=== PATIENT | female | born 1935 | race Caucasian/White ===

== ENCOUNTER 2017-08-11 20:03 | Emergency (ER) | payer MEDICARE, MEDICAID ==
[2017-08-11 21:01] LABS: #Eosinphils 0.2 thou/uL (0.0-0.7); Hemoglobin 12.1 g/dL (12.0-16.0); RBC Distribution Width 12.1 % (11.5-14.5); White Blood Cell (WBC) Count 6.7 thou/uL (4.8-10.8)
[2017-08-11 21:14] LABS: ALT (SGPT) 10 U/L (8-55); AST (SGOT) 17 U/L (5-34); Albumin 4.1 g/dL (3.4-4.8); Alkaline Phosphatase 109 U/L (40-150); Anion Gap 14 mmol/L (10-20); BUN (Urea Nitrogen) 11 mg/dL (9.8-20.1); Bilirubin, Total 0.5 mg/dL (0.2-1.2); Calc. Creatinine Clearance 0 mL/min (70-130); Calcium 9.3 mg/dL (7.8-10.44); Carbon Dioxide 22 mmol/L (23-31); Chloride 101 mmol/L (98-107); Estimated GFR-MDRD 89; Globulin 2.5 g/dL (2.4-3.5); Glucose 91 mg/dL (83-110); Potassium 3.6 mmol/L (3.5-5.1); Protein, Total 6.6 g/dL (6.0-8.3); Sodium 133 mmol/L (136-145)
[2017-08-11 21:16] LABS: #Basophils 0.1 thou/uL (0.0-0.2); #Lymphocytes 1.9 thou/uL (1.20-3.40); #Monocytes 0.7 thou/uL (0.11-0.59); #Neutrophils 3.8 thou/uL (1.40-6.50); %Basophils 0.9 % (0.0-1.0); %Eosinophils 3.1 % (0.0-10.0); %Monocytes 10.9 % (0.0-10.0); %Neutrophils 56.1 % (42.0-75.0); Mean Corpuscular HGB CONC 33.3 g/dL (32.0-36.0); Mean Corpuscular Volume 84.1 fl (81.0-99.0); Mean Platelet Volume 8.6 fL (7.4-10.4); Platelet Count 237 thou/uL (130-400); Red Blood Cell (RBC) Count 4.33 mill/uL (4.20-5.40)
[2017-08-11 21:19] LABS: Bilirubin Negative (Negative); Blood, Urine Negative (Negative); Clarity CLEAR (Clear); Glucose, Urine (Dipstick) Negative (Negative); Leukocyte Trace (Negative); Nitrite Negative (Negative); Protein, Urine (Dipstick) Negative (Neg-Trace); Specific Gravity, Urine 1.004 (1.002-1.036); pH, Urine 6.5 (5.0-9.0)
[2017-08-11 21:20] LABS: CKMB 2.9 ng/mL (0-6.6); Troponin I Less than 0.010 ng/mL (< 0.028)
[2017-08-11 21:22] LABS: Bacteria/HPF None Seen HPF (None Seen); Hyaline Casts/LPF 0-3 HYALINE CAST LPF (0-3 Hyaline); RBC/HPF 0-3 HPF (0-3); Squamous Epithelial None Seen HPF (0-3); WBC/HPF 0-3 HPF (0-3)
--- NOTE | 2017-08-11 21:32 | RAD ---
ONE VIEW CHEST: 08/11/17 COMPARISON: 12/02/16. HISTORY: Dizziness, generalized weakness. FINDINGS: Enlarged cardiac silhouette. Pulmonary vessels and hilum are normal. Chronic changes, without mass or consolidation. No pneumothorax or osseous abnormalities. IMPRESSION: Chronic changes. Hyperinflation. POS: [facility]
[2017-08-11] MEDS ORDERED: HYDROcodone/Acetaminophen 5/325 mg Tablet ONE (21:42)
[2017-08-11] MEDS ORDERED: Ondansetron ODT 4 MG TAB ONE (21:43)
== END 2017-08-11 22:50 | disposition home or self-care (01) ==
LOC: ERS 20:03
DX: F41.9 Anxiety disorder, unspecified (principal); R11.2 Nausea with vomiting, unspecified; E03.9 Hypothyroidism, unspecified; E78.5 Hyperlipidemia, unspecified; I25.2 Old myocardial infarction; I10 Essential (primary) hypertension; I25.10 Atherosclerotic heart disease of native coronary artery without angina pectoris; Z79.899 Other long term (current) drug therapy
CPT/HCPCS: 71045; 80053; 81003; 81015; 82553; 84484; 85025; 93005; Q0162

== ENCOUNTER 2017-10-31 14:51 | Emergency (ER) | payer MEDICARE, MEDICAID | END 2017-10-31 16:01 | disposition home or self-care (01) | LOC: SCSER 14:51 | DX: B02.9 Zoster without complications (principal); E78.5 Hyperlipidemia, unspecified; E03.9 Hypothyroidism, unspecified; I10 Essential (primary) hypertension; K21.9 Gastro-esophageal reflux disease without esophagitis; M19.90 Unspecified osteoarthritis, unspecified site; I25.10 Atherosclerotic heart disease of native coronary artery without angina pectoris; F41.9 Anxiety disorder, unspecified | CPT/HCPCS: 99282 ==

== ENCOUNTER 2017-11-18 19:48 | Emergency (ER) | payer MEDICARE, MEDICAID ==
[2017-11-18 23:57] LABS: ALT (SGPT) 9 U/L (8-55); AST (SGOT) 16 U/L (5-34); Albumin 3.6 g/dL (3.4-4.8); Alkaline Phosphatase 95 U/L (40-150); Anion Gap 11 mmol/L (10-20); BUN (Urea Nitrogen) 7 mg/dL (9.8-20.1); Bilirubin, Total 0.6 mg/dL (0.2-1.2); Calc. Creatinine Clearance 0 mL/min (70-130); Calcium 8.9 mg/dL (7.8-10.44); Carbon Dioxide 26 mmol/L (23-31); Chloride 99 mmol/L (98-107); Estimated GFR-MDRD Greater than 90; Globulin 2.1 g/dL (2.4-3.5); Glucose 96 mg/dL (83-110); Lipase 18 U/L (8-78); Potassium 3.7 mmol/L (3.5-5.1); Protein, Total 5.7 g/dL (6.0-8.3); Sodium 132 mmol/L (136-145)
[2017-11-19] LABS: CKMB 3.6 ng/mL (0-6.6); Troponin I Less than 0.010 ng/mL (< 0.028)
[2017-11-19 00:45] LABS: Bilirubin Negative (Negative); Blood, Urine Negative (Negative); Clarity CLEAR (Clear); Glucose, Urine (Dipstick) Negative (Negative); Leukocyte Small (Negative); Nitrite Negative (Negative); Protein, Urine (Dipstick) Negative (Neg-Trace); pH, Urine 6.5 (5.0-9.0)
[2017-11-19] MEDS ORDERED: Ondansetron HCl/PF 4 MG/2 ML Vial ONE (00:45)
[2017-11-19 00:47] LABS: Pathc Cast-AUWi Flag 0.14 (0-2.49)
[2017-11-19 01:01] LABS: Bacteria/HPF None Seen HPF (None Seen); Hyaline Casts/LPF NONE SEEN LPF (0-3 Hyaline); RBC/HPF None Seen HPF (0-3); Renal Epithelial None Seen HPF (0-3); Specific Gravity, Urine 1.004 (1.002-1.036); Squamous Epithelial 0-3 HPF (0-3); Transitional Epithelial NONE SEEN HPF (0-3)
[2017-11-19 01:42] LABS: #Eosinphils 0.1 thou/uL (0.0-0.7); #Lymphocytes 1.9 thou/uL (1.20-3.40); #Monocytes 0.7 thou/uL (0.11-0.59); #Neutrophils 3.2 thou/uL (1.40-6.50); %Basophils 0.5 % (0.0-1.0); %Eosinophils 1.8 % (0.0-10.0); %Lymphocytes 31.9 % (21.0-51.0); %Monocytes 11.5 % (0.0-10.0); %Neutrophils 54.3 % (42.0-75.0); Hemoglobin 10.6 g/dL (12.0-16.0); Mean Corpuscular HGB CONC 34.9 g/dL (32.0-36.0); Mean Corpuscular Hemoglobin 29.7 pg (27.0-31.0); Mean Platelet Volume 8.5 fL (7.4-10.4); Platelet Count 238 thou/uL (130-400); RBC Distribution Width 13.4 % (11.5-14.5); Red Blood Cell (RBC) Count 3.58 mill/uL (4.20-5.40)
--- NOTE | 2017-11-19 09:53 | CT ---
PRELIMINARY REPORT/[facility]/EMERGENTY AFTER-HOURS PROCEDURE CT Abdomen and Pelvis With Intravenous Contrast EXAM DATE/TIME: 11/19/2017 12:35 AM CLINICAL HISTORY: 82 years old, female; Pain; Abdominal pain; Localized; Right lower quadrant (rlq); Patient HX: Er19; 82f presents with rlq pain that started on thursday. Patient denies nausea and vomiting. Denies diarrhe a and constipation. Reports pain in constant TECHNIQUE: Axial computed tomography images of the abdomen and pelvis with intravenous contrast. Coronal reformatted images were created and reviewed. COMPARISON: No relevant prior studies available. FINDINGS: Lower thorax: There is minimal bibasilar atelectatic change or scarring. There is a small hiatal ayush ia. ABDOMEN: Liver: Normal. No mass. Gallbladder and bile ducts: Normal. No calcified stones. No ductal dilation. Pancreas: Normal. No ductal dilation. Spleen: Normal. No splenomegaly. Adrenals: Normal. No mass. Kidneys and ureters: Normal. No hydronephrosis. Stomach and bowel: There are duodenal diverticula. There is colonic diverticulosis without evidence f or acute diverticulitis. Appendix: The appendix is not visible, no obvious inflammatory change in the right lower quadrant. PELVIS: Bladder: Unremarkable as visualized. Reproductive: There are postoperative changes of hysterectomy. ABDOMEN and PELVIS: Intraperitoneal space: Normal. No free air. No significant fluid collection. Bones/joints: There is diffuse osteopenia and there are degenerative changes of the spine. Soft tissues: Unremarkable. Vasculature: There are calcified phleboliths in the pelvis. Lymph nodes: There are numerous subcentimeter lymph nodes at the root of the mesentery. IMPRESSION: 1. There is a small hiatal hernia. 2. There is colonic diverticulosis without evidence for acute diverticulitis. 3. The appendix is not visible, no obvious inflammatory change in the right lower quadrant. Thank you for allowing us to participate in the care of your patient. Dictated and Authenticated by: Thang Hassan MD 11/19/2017 1:18 AM Central Time ([place] & [place]) CT ABDOMEN AND PELVIS WITH IV CONTRAST: Enteric contrast not administered. FINDINGS/IMPRESSION: I agree with the preliminary interpretation by [facility]. There is incomplete assessment of the bowel without enteric contrast. No inflammatory findings to ind icate appendicitis are visualized. Retained fecal material throughout the colon with evidence of colonic diverticulosis. Nonspecific increased in number although not pathologically enlarged mesenteric lymph nodes. This can be seen in the setting of mesenteric adenitis. Recommend clinical correlation to exclude a prolific process. Moderate distention of the urinary bladder. Correlate clinically. Prominence of the vaginal soft tissues, incompletely assessed on CT imaging. Correlate with physical exam. POS: [facility]
== END 2017-11-19 02:09 | disposition home or self-care (01) ==
LOC: ERS 19:48
DX: R10.31 Right lower quadrant pain (principal); E03.9 Hypothyroidism, unspecified; E78.5 Hyperlipidemia, unspecified; I10 Essential (primary) hypertension; I25.10 Atherosclerotic heart disease of native coronary artery without angina pectoris; F41.9 Anxiety disorder, unspecified; Z79.84 Long term (current) use of oral hypoglycemic drugs
CPT/HCPCS: 36415; 74177; 80053; 81003; 81015; 82553; 83605; 83690; 84484; 85025; J2270; J2405

== ENCOUNTER 2018-05-18 19:58 | Emergency (ER) | payer MEDICARE, MEDICAID ==
[2018-05-18 21:52] LABS: #Basophils 0.1 thou/uL (0.0-0.2); #Eosinphils 0.2 thou/uL (0.0-0.7); #Lymphocytes 1.3 thou/uL (1.20-3.40); #Monocytes 0.6 thou/uL (0.11-0.59); #Neutrophils 4.5 thou/uL (1.40-6.50); %Eosinophils 2.6 % (0.0-10.0); %Lymphocytes 19.7 % (21.0-51.0); %Monocytes 9.7 % (0.0-10.0); %Neutrophils 67.1 % (42.0-75.0); Hemoglobin 10.5 g/dL (12.0-16.0); Mean Corpuscular HGB CONC 32.5 g/dL (32.0-36.0); Mean Corpuscular Hemoglobin 27.8 pg (27.0-31.0); Mean Corpuscular Volume 85.6 fL (78.0-98.0); Mean Platelet Volume 9.5 fL (7.4-10.4); Platelet Count 162 thou/uL (130-400); RBC Distribution Width 12.1 % (11.5-14.5); Red Blood Cell (RBC) Count 3.77 mill/uL (4.20-5.40); White Blood Cell (WBC) Count 6.7 thou/uL (4.8-10.8)
--- NOTE | 2018-05-18 21:57 | RAD ---
TWO VIEW CHEST: 05/18/17 INDICATION: Dizziness, weakness. FINDINGS: Lungs are hyperinflated with interstitial prominence bilaterally. The cardiomediastinal silhouette is stable. Chest otherwise similar appearing. IMPRESSION: Evidence of COPD. No lobar consolidation. POS: [facility]
[2018-05-18 22:09] LABS: ALT (SGPT) 10 U/L (8-55); AST (SGOT) 18 U/L (5-34); Albumin 3.8 g/dL (3.4-4.8); Alkaline Phosphatase 88 U/L (40-150); Anion Gap 13 mmol/L (10-20); BUN (Urea Nitrogen) 9 mg/dL (9.8-20.1); Bilirubin, Total 0.5 mg/dL (0.2-1.2); Calc. Creatinine Clearance 0 mL/min (70-130); Calcium 9.2 mg/dL (7.8-10.44); Carbon Dioxide 24 mmol/L (23-31); Chloride 99 mmol/L (98-107); Estimated GFR-MDRD 88; Glucose 99 mg/dL (83-110); Potassium 3.9 mmol/L (3.5-5.1); Protein, Total 5.8 g/dL (6.0-8.3); Sodium 132 mmol/L (136-145)
[2018-05-18] MEDS ORDERED: Meclizine HCl 25 MG TAB ONE (22:15)
== END 2018-05-18 23:17 | disposition home or self-care (01) ==
LOC: SCSER 19:58
DX: D64.9 Anemia, unspecified (principal); R42 Dizziness and giddiness; I10 Essential (primary) hypertension; E03.9 Hypothyroidism, unspecified; E78.5 Hyperlipidemia, unspecified; I25.2 Old myocardial infarction; F41.9 Anxiety disorder, unspecified; Z79.899 Other long term (current) drug therapy
CPT/HCPCS: 71046; 80053; 84443; 85025; 93005

== ENCOUNTER 2018-06-27 12:05 | Emergency (ER) | payer MEDICARE, MEDICAID ==
[2018-06-27 14:48] LABS: #Basophils 0.1 thou/uL (0.0-0.2); #Eosinphils 0.1 thou/uL (0.0-0.7); #Lymphocytes 1.6 thou/uL (1.20-3.40); #Monocytes 0.7 thou/uL (0.11-0.59); #Neutrophils 3.7 thou/uL (1.40-6.50); %Eosinophils 2.1 % (0.0-10.0); %Lymphocytes 26.2 % (21.0-51.0); %Neutrophils 59.8 % (42.0-75.0); Hemoglobin 10.5 g/dL (12.0-16.0); Mean Corpuscular HGB CONC 32.1 g/dL (32.0-36.0); Mean Corpuscular Hemoglobin 28.3 pg (27.0-31.0); Mean Corpuscular Volume 88.2 fL (78.0-98.0); Mean Platelet Volume 8.9 fL (7.4-10.4); Platelet Count 195 thou/uL (130-400); RBC Distribution Width 11.8 % (11.5-14.5); White Blood Cell (WBC) Count 6.1 thou/uL (4.8-10.8)
[2018-06-27 15:02] LABS: ALT (SGPT) 11 U/L (8-55); AST (SGOT) 15 U/L (5-34); Albumin 3.4 g/dL (3.4-4.8); Alkaline Phosphatase 75 U/L (40-150); Anion Gap 9 mmol/L (10-20); BUN (Urea Nitrogen) 10 mg/dL (9.8-20.1); Bilirubin, Total 0.6 mg/dL (0.2-1.2); Calc. Creatinine Clearance 0 mL/min (70-130); Calcium 8.8 mg/dL (7.8-10.44); Carbon Dioxide 26 mmol/L (23-31); Chloride 100 mmol/L (98-107); Estimated GFR-MDRD 87; Glucose 83 mg/dL (83-110); Lipase 10 U/L (8-78); Potassium 4.5 mmol/L (3.5-5.1); Protein, Total 5.4 g/dL (6.0-8.3); Sodium 130 mmol/L (136-145)
--- NOTE | 2018-06-27 15:14 | ULT ---
ULTRASOUND ABDOMEN LIMITED: (RIGHT UPPER QUADRANT) DATE: 06/27/2018. HISTORY: An 82-year-old female with epigastric abdominal pain. FINDINGS: Gallbladder: Partially contracted and therefore the evaluation is somewhat limited. No definite gall stones. No pericholecystic fluid. No sonographic Ledbetter's sign. Common duct: 5 mm. Liver: Normal echogenicity. Pancreas: Completely obscured by shadowing from bowel gas. Right kidney: No hydronephrosis. IMPRESSION: 1. Limited study. 2. No cholelithiasis identified. JOI Eason POS: [facility]
[2018-06-27 15:38] LABS: Bilirubin Negative (Negative); Blood, Urine Negative (Negative); Clarity CLEAR (Clear); Glucose, Urine (Dipstick) Negative (Negative); Leukocyte Negative (Negative); Nitrite Negative (Negative); Protein, Urine (Dipstick) Negative (Neg-Trace); Specific Gravity, Urine 1.005 (1.002-1.036); Urobilinogen 0.2 mg/dL (0.2-1.0); pH, Urine 7.5 (5.0-9.0)
== END 2018-06-27 15:49 | disposition home or self-care (01) ==
LOC: ERS 12:05
DX: R10.9 Unspecified abdominal pain (principal); E03.9 Hypothyroidism, unspecified; E78.5 Hyperlipidemia, unspecified; I25.2 Old myocardial infarction; I10 Essential (primary) hypertension; I25.10 Atherosclerotic heart disease of native coronary artery without angina pectoris; F41.9 Anxiety disorder, unspecified; Z79.899 Other long term (current) drug therapy
CPT/HCPCS: 36415; 76705; 80053; 81003; 83690; 85025; 93005

== ENCOUNTER 2018-09-04 09:42 | Emergency (ER) | payer MEDICARE, MEDICAID ==
[2018-09-04] MEDS ORDERED: Acetaminophen 325 MG TAB ONE (10:19)
--- NOTE | 2018-09-04 10:35 | CT ---
CT head without contrast: Multiple axial tomograms obtained through the head without IV enhancement. INDICATIONS: Fall with injury to head. COMPARISON: 05/10/2016 FINDINGS: Ventricles have normal size and position. Mild cortical atrophy again noted. Basal ganglia calcificat ions again noted. No evidence of intracranial mass, hemorrhage, edema, or infarct. Visualized sinuses and mastoids appear clear. Bony calvarium appears unremarkable. IMPRESSION: No acute finding
--- NOTE | 2018-09-04 10:42 | CT ---
CT CERVICAL SPINE NONCONTRAST: DATE: 09/04/2018 HISTORY: cervical trauma FINDINGS: There are no jumped or perched facets. There is no evidence of acute fracture. The vertebral body hei ghts are maintained. There is no prevertebral soft tissue swelling. IMPRESSION: No evidence of acute fracture or acute traumatic subluxation. ADDENDUM: Incidentally, there is a thin layer of edema in the retropharyngeal space, of uncertain etiology.
--- NOTE | 2018-09-04 10:49 | CT ---
CT facial bones: Multiple axial tones obtained through facial bones with multiplanar reconstruction. INDICATIONS: Trauma to face. Nasal bones appear intact. Orbits appear intact. Zygoma appear intact. Paranasal sinuses are well aerated. The maxilla appears intact. Mandible appears intact. Soft tissues show small hematoma lateral to the left orbit. IMPRESSION: 1. No evidence of facial bone fracture 2. Small subcutaneous hematoma lateral left orbit
== END 2018-09-04 11:30 | disposition home or self-care (01) ==
LOC: ERS 09:42
DX: S05.12XA Contusion of eyeball and orbital tissues, left eye, initial encounter (principal); M54.2 Cervicalgia; E78.5 Hyperlipidemia, unspecified; E03.9 Hypothyroidism, unspecified; I25.2 Old myocardial infarction; I10 Essential (primary) hypertension; I25.10 Atherosclerotic heart disease of native coronary artery without angina pectoris; F41.9 Anxiety disorder, unspecified; Z79.899 Other long term (current) drug therapy; W19.XXXA Unspecified fall, initial encounter
CPT/HCPCS: 70450; 70486; 72125

== ENCOUNTER 2018-10-05 08:55 | Inpatient (IN) | payer MEDICARE, MEDICAID ==
[2018-10-05 10:35] LABS: #Lymphocytes 1.1 thou/uL (1.20-3.40); #Monocytes 1.6 thou/uL (0.11-0.59); #Neutrophils 16.4 thou/uL (1.40-6.50); %Lymphocytes 5.5 % (21.0-51.0); %Monocytes 8.4 % (0.0-10.0); Hemoglobin 10.4 g/dL (12.0-16.0); Mean Corpuscular Hemoglobin 28.4 pg (27.0-31.0); Mean Corpuscular Volume 83.4 fL (78.0-98.0); Mean Platelet Volume 8.1 fL (7.4-10.4); Platelet Count 203 thou/uL (130-400); RBC Distribution Width 11.5 % (11.5-14.5); Red Blood Cell (RBC) Count 3.68 mill/uL (4.20-5.40); White Blood Cell (WBC) Count 19.1 thou/uL (4.8-10.8)
[2018-10-05 10:55] LABS: ALT (SGPT) 33 U/L (8-55); AST (SGOT) 103 U/L (5-34); Alkaline Phosphatase 73 U/L (40-150); Anion Gap 12 mmol/L (10-20); BUN (Urea Nitrogen) 11 mg/dL (9.8-20.1); Bilirubin, Total 1.9 mg/dL (0.2-1.2); Calc. Creatinine Clearance 0 mL/min (70-130); Calcium 9.3 mg/dL (7.8-10.44); Carbon Dioxide 24 mmol/L (23-31); Chloride 89 mmol/L (98-107); Estimated GFR-MDRD 82; Globulin 2.1 g/dL (2.4-3.5); Glucose 116 mg/dL (83-110); Potassium 3.2 mmol/L (3.5-5.1); Protein, Total 6.1 g/dL (6.0-8.3); Sodium 122 mmol/L (136-145)
--- NOTE | 2018-10-05 11:20 | RAD ---
Exam: Chest one view HISTORY:Diarrhea, x2-3 days. Comparison: 08/11/2017 FINDINGS: Cardiac silhouette: Normal Aorta: Atherosclerosis of the aortic knob Pulmonary vessels: Normal Costophrenic angles: Clear LUNGS: No masses or consolidation. Chronic changes in the lung bases. Pneumothorax: None Osseous abnormalities: None IMPRESSION: No acute cardiopulmonary process.
[2018-10-05] MEDS ORDERED: Potassium Chloride 20 MEQ TAB ONE (11:41)
[2018-10-05 12:45] LABS: Bilirubin Negative (Negative); Blood, Urine Moderate (Negative); Clarity CLEAR (Clear); Glucose, Urine (Dipstick) Negative (Negative); Leukocyte Negative (Negative); Nitrite Negative (Negative); Protein, Urine (Dipstick) Negative (Neg-Trace); Urobilinogen 0.2 mg/dL (0.2-1.0)
[2018-10-05 12:48] LABS: Bacteria/HPF None Seen HPF (None Seen); Hyaline Casts/LPF 4-6 HYALINE CAST LPF (0-3 Hyaline); Pathc Cast-AUWi Flag 0.27 (0-2.49); RBC/HPF 0-3 HPF (0-3); Squamous Epithelial 0-3 HPF (0-3); WBC/HPF 0-3 HPF (0-3)
[2018-10-05 12:58] LABS: Transitional Epithelial 0-3 HPF (0-3)
[2018-10-05] MEDS ORDERED: Acetaminophen 325 MG TAB PO PRN (13:46)
[2018-10-05] MEDS ORDERED: Sodium Chloride 0.9% 1,000 ML IV SCH (13:46)
[2018-10-05] MEDS ORDERED: Ondansetron ODT 4 MG TAB SL PRN (13:46)
[2018-10-05] MEDS ORDERED: Ondansetron PF 4 MG/2 ML Vial IVP PRN (13:46)
[2018-10-05] MEDS ORDERED: Ondansetron ODT 4 MG TAB PO PRN (17:50)
[2018-10-05] MEDS: Sodium Chloride 0.9% 1,000 ML IV SCH (19:56)
[2018-10-05] MEDS: Latanoprost 0.005% Ophth Soln 2.5 ml Bottle EA EYE SCH (20:48)
[2018-10-05] MEDS: cycloSPORINE 0.05% Ophthalmic Droperette EA EYE SCH (20:49)
[2018-10-05] MEDS: Mirtazapine 30 MG TAB PO SCH (20:49)
[2018-10-05] MEDS: Trospium 20 MG TAB PO SCH (20:49)
[2018-10-05] MEDS: Simvastatin 40 MG TAB PO SCH (20:49)
[2018-10-05] MEDS: ALPRAZolam 0.5 MG TAB PO SCH (20:49)
--- NOTE | 2018-10-06 00:13 | HP ---
CHIEF COMPLAINT: Generalized weakness and diarrhea. HISTORY OF PRESENT ILLNESS: Ms. Corrales is an 82-year-old female with past medical history of hypertension, hypothyroidism, anxiety, depression, has been not eating well for the last few weeks and has been losing weight steadily and in the last few days, she has taken laxatives for constipation. According to the family, she has taken more laxatives and started having diarrhea now. She had 10 loose stools and the patient is unable to get up and walk because of weakness. So, in view of the persistent diarrhea, the patient was brought to the hospital. In the ER, the patient was evaluated and found to have hyponatremia, hypokalemia, and hypovolemia. The patient received normal saline, IV bolus as well as KCl. The patient is being admitted for further evaluation and management. PAST MEDICAL HISTORY: 1. Hypertension. 2. Hyperlipidemia. 3. Hypothyroidism. 4. Anxiety disorder. 5. History of depression. 6. History of coronary artery disease. 7. History of myocardial infarction. PAST SURGICAL HISTORY: Status post hysterectomy. CURRENT MEDICATIONS: The patient is on: 1. Nexium 40 mg daily. 2. VESIcare 10 mg daily. 3. Remeron 30 mg daily. 4. Lisinopril 10 mg daily. 5. Simvastatin 40 mg daily. 6. Tramadol p.r.n. 7. Levothyroxine 25 mg mcg daily. 8. Xanax 0.5 t.i.d. 9. Lasix 20 mg daily. ALLERGIES: NKDA. FAMILY HISTORY: Nothing contributory. SOCIAL HISTORY: The patient lives with her son. No history of smoking. No history of alcohol intake. REVIEW OF SYSTEMS: CARDIOVASCULAR: No chest pain. No shortness of breath. RESPIRATORY: No fever or cough. GASTROINTESTINAL: Has diarrhea and also anorexia and weight loss. CENTRAL VENOUS SYSTEM: No headache. No dizziness. PHYSICAL EXAMINATION: GENERAL: The patient is alert, awake, not well oriented. VITAL SIGNS: Temperature 98, pulse 69, respirations 20, blood pressure 150/70. HEENT: Head is normocephalic and atraumatic. Pupils are equal and reactive. Nasopharynx is pale and dry. Hard and soft palate, no lesions. Skin turgor decreased. NECK: Supple. No JVD. LUNGS: Bilateral air entry. No rales, no rhonchi. HEART: S1 and S2, regular. ABDOMEN: Soft. No distention. No tenderness. No organomegaly. Bowel sounds present. RECTAL: Deferred. CENTRAL NERVOUS SYSTEM: The patient is alert, awake, oriented x2. Motor system, power 3 to 4/5 in all extremities. Deep tendon reflex 2+ bilaterally. Plantars downgoing. Sensory intact. LABORATORY DATA: CBC shows WBC 19, hemoglobin 10, hematocrit 30, platelets 203. Metabolic panel; sodium 122, potassium 3.8, chloride 89, CO2 24, blood urea nitrogen 11, creatinine 0.7, glucose 116, total bilirubin 1.9. AST 103. BNP was 224. Albumin 4. Urinalysis negative. Chest x-ray negative. ASSESSMENT: 1. Severe diarrhea. 2. Hyponatremia. 3. Hypokalemia. 4. Acute kidney injury. 5. Laxative abuse. 6. Anorexia and weight loss. 7. History of depression and anxiety. 8. Hypertension. 9. Hypothyroidism. 10. Leukocytosis. PLAN: 1. Vital signs q.4 hours. 2. Activities, as tolerated. 3. Allergies, NKDA. 4. IV fluids, normal saline 80 mL/h. 5. Diet, regular. 6. Continue home medications. 7. Labs in the morning. 8. GI consult. Job ID: [id number]
[2018-10-06] MEDS: Sodium Chloride 0.9% 1,000 ML IV SCH ×2 (00:35→14:14)
[2018-10-06] MEDS: Levothyroxine Sodium 25 MCG TAB PO SCH (05:23)
[2018-10-06 06:31] LABS: #Eosinphils 0.1 thou/uL (0.0-0.7); #Lymphocytes 1.5 thou/uL (1.20-3.40); #Monocytes 1.2 thou/uL (0.11-0.59); #Neutrophils 8.1 thou/uL (1.40-6.50); %Basophils 0.4 % (0.0-1.0); %Eosinophils 0.7 % (0.0-10.0); %Lymphocytes 13.6 % (21.0-51.0); %Monocytes 11.1 % (0.0-10.0); %Neutrophils 74.2 % (42.0-75.0); Hemoglobin 9.7 g/dL (12.0-16.0); Mean Corpuscular HGB CONC 33.8 g/dL (32.0-36.0); Mean Corpuscular Hemoglobin 28.6 pg (27.0-31.0); Mean Corpuscular Volume 84.5 fL (78.0-98.0); Mean Platelet Volume 8.5 fL (7.4-10.4); Platelet Count 175 thou/uL (130-400); RBC Distribution Width 11.7 % (11.5-14.5); Red Blood Cell (RBC) Count 3.39 mill/uL (4.20-5.40)
[2018-10-06 06:53] LABS: Anion Gap 9 mmol/L (10-20); BUN (Urea Nitrogen) 6 mg/dL (9.8-20.1); Calc. Creatinine Clearance 54 mL/min (70-130); Calcium 8.2 mg/dL (7.8-10.44); Carbon Dioxide 24 mmol/L (23-31); Chloride 105 mmol/L (98-107); Estimated GFR-MDRD Greater than 90; Glucose 85 mg/dL (83-110); Potassium 3.3 mmol/L (3.5-5.1); Sodium 135 mmol/L (136-145)
[2018-10-06] MEDS: cycloSPORINE 0.05% Ophthalmic Droperette EA EYE SCH (09:32)
[2018-10-06] MEDS: Trospium 20 MG TAB PO SCH (09:32)
[2018-10-06] MEDS: Aspirin Chewable 81 MG TAB PO SCH (09:33)
[2018-10-06] MEDS: Lisinopril 10 MG TAB PO SCH (09:33)
[2018-10-06] MEDS: ALPRAZolam 0.5 MG TAB PO SCH (09:33)
[2018-10-06] MEDS ORDERED: GoLYTELY 4,000 ml Bottle PO SCH (11:45)
--- NOTE | 2018-10-06 12:35 | CON ---
DATE OF CONSULTATION: 10/06/2018 REASON FOR CONSULTATION: Anorexia and weight loss. HISTORY OF PRESENT ILLNESS: Hafsa Moran is an 82-year-old woman, who has previously been seen by my GI colleague, Dr. Otoniel Granger. She had an EGD and colonoscopy back in 2012, which were essentially negative. She had a duodenal diverticulum and a single small polyp in the colon, which was ablated. She has a history of depression and anxiety as well as coronary artery disease. Over the past 6 to 12 months, the patient has unintentionally lost 30 to 40 pounds. She associates this with a decline in oral intake secondary to decrease in appetite. Most days, she is simply not hungry and will have to force herself to eat. She denies any nausea or any abdominal pain. There is no vomiting. Eating does not set off any symptoms, she simply just is not hungry. She did lose her in February of last year and a lot of the weight loss and anorexia has been increased since then. She has been tried on mirtazapine. She takes Nexium 40 mg on an as-needed basis for occasional heartburn. Over the past few weeks in addition, she was having some new issues with constipation. She took some [id number] laxatives and then had diarrhea. Along with the diarrhea, she was feeling profoundly weak and tired and was unable to get up off the couch and that is what prompted her presentation. Her laboratory workup is notable for a normocytic anemia with hemoglobin 9.7 and MCV 84.5. Fecal occult blood test was performed and is positive. She also has a slight elevation in total bilirubin to 1.9 and AST to 103 with otherwise normal LFTs. She has no prior history of liver disease. Notably, the patient had been referred back to the GI clinic several times over the past few months, but had never ended up scheduling an appointment. REVIEW OF SYSTEMS: Full review of systems including constitutional, head, eyes, ears, nose, throat, GI, , cardiovascular, respiratory, musculoskeletal, and neurologic systems are negative except as noted in the HPI. PAST MEDICAL HISTORY: Hypertension, hyperlipidemia, hypothyroidism, depression and anxiety, coronary artery disease, myocardial infarction, and hysterectomy. ALLERGIES: NO KNOWN DRUG ALLERGIES. MEDICATIONS: 1. Nexium 40 mg daily p.r.n. 2. VESIcare. 3. Remeron 30 mg daily. 4. Lisinopril 10 mg daily. 5. Simvastatin 40 mg daily. 6. Tramadol p.r.n. 7. Levothyroxine 25 mcg daily. 8. Xanax 0.5 mg t.i.d. 9. Lasix 20 mg daily. FAMILY HISTORY: Negative for GI illness or malignancy. SOCIAL HISTORY: No smoking, alcohol, or drug use. PHYSICAL EXAMINATION: VITAL SIGNS: Temperature 98.5, blood pressure 151/77, pulse 66, and 98% oxygen saturation on room air. GENERAL: Elderly 82-year-old woman, sitting up in the chair comfortably, frail, but in no acute distress. SKIN: No jaundice. No rashes were palpable. EYES: No scleral icterus. Extraocular movements intact. ENT: Mucous membranes moist. No oral lesions. LYMPH: No submandibular or supraclavicular lymphadenopathy. Thyroid nontender to palpation. HEART: Regular rate and rhythm. LUNGS: Clear to auscultation bilaterally. ABDOMEN: Nondistended. Bowel sounds present. Soft and nontender to palpation throughout. EXTREMITIES: No peripheral edema. VESSELS: Radial pulses 2+ bilaterally. NEURO: Cranial nerves 2 through 12 intact bilaterally. No focal deficits. LABORATORY STUDIES: Hemoglobin 9.7, MCV 84.5, WBC 11, and platelets 175. BUN 6, creatinine 0.56, sodium 135, potassium 3.3, total bilirubin 1.9, alkaline phosphatase 73, AST 103, ALT 33, and albumin 4.0. TSH 0.73. BNP is 224. Urinalysis negative. FOBT was positive. IMAGING STUDIES: Chest x-ray showed no acute processes. Looking back in a prior imaging studies, June 2018, abdominal ultrasound showed some stones in the gallbladder, but the exam was otherwise within normal limits with a normal common bile duct. November 2017, CT of the abdomen and pelvis demonstrated multiple mesenteric lymph nodes, but not pathologically enlarged. She has some diverticulosis, but otherwise normal bowel, otherwise normal CT exam. ASSESSMENT AND PLAN: 1. Anorexia. 2. Unintentional weight loss. 3. Normocytic anemia. I discussed with the patient that her ongoing weight loss is indeed concerning, this may simply represent a manifestation of worsened depression, particularly after the passing of her late last year. The anemia may just be a reflection of chronic disease and possibly some malnutrition with all this. However, particularly with the recent change in bowel habits, we certainly need to consider primary GI pathology. We will plan for diagnostic esophagogastroduodenoscopy and colonoscopy tomorrow. The patient desires to proceed after bowel preparation this evening. 4. Elevated LFTs. The patient has modest elevations of total bilirubin and AST with otherwise normal LFTs and no symptomatology. Recent imaging by ultrasound and CT had shown normal appearing liver. I see no evidence of cirrhosis or liver decompensation. We will order some further liver lab workup to be drawn with tomorrow morning labs including viral hepatitis serologies, autoimmune markers, and iron studies. Thank you for the consultation. Please call anytime with questions or concerns. Job ID: [id number]
[2018-10-06] MEDS ORDERED: Prevnar 13-Val Conj/PF 0.5 ML SYRINGE IM ONE (15:15)
[2018-10-06] MEDS ORDERED: Nortriptyline HCl 25 MG CAP ONE (21:17)
[2018-10-06] MEDS ORDERED: ALPRAZolam 0.5 MG TAB ONE (22:22)
[2018-10-07] MEDS ORDERED: Levothyroxine Sodium 25 MCG TAB ONE (06:04)
[2018-10-07] MEDS ORDERED: Trospium 20 MG TAB ONE (07:37)
[2018-10-07] MEDS ORDERED: ALPRAZolam 0.5 MG TAB ONE (07:38)
[2018-10-07] MEDS: Mirtazapine 30 MG TAB PO SCH ×2 (09:44→20:09)
[2018-10-07] MEDS: Latanoprost 0.005% Ophth Soln 2.5 ml Bottle EA EYE SCH ×2 (09:44→20:09)
[2018-10-07] MEDS: ALPRAZolam 0.5 MG TAB PO SCH ×3 (09:44→20:08)
[2018-10-07] MEDS: cycloSPORINE 0.05% Ophthalmic Droperette EA EYE SCH ×2 (09:45→12:13)
[2018-10-07] MEDS: Trospium 20 MG TAB PO SCH ×3 (09:45→20:09)
[2018-10-07] MEDS: Simvastatin 40 MG TAB PO SCH ×2 (09:45→20:09)
[2018-10-07] MEDS: Levothyroxine Sodium 25 MCG TAB PO SCH (09:45)
[2018-10-07 09:52] LABS: Chloride 103 mmol/L (98-107); Potassium 3.3 mmol/L (3.5-5.1); Sodium 136 mmol/L (136-145)
[2018-10-07 09:53] LABS: Calcium 8.1 mg/dL (7.8-10.44); Glucose 64 mg/dL (83-110)
[2018-10-07 09:55] LABS: Anion Gap 12 mmol/L (10-20); Carbon Dioxide 24 mmol/L (23-31)
[2018-10-07 09:57] LABS: Calc. Creatinine Clearance 63 mL/min (70-130); Estimated GFR-MDRD Greater than 90
[2018-10-07 09:58] LABS: BUN (Urea Nitrogen) 6 mg/dL (9.8-20.1)
[2018-10-07 10:12] LABS: #Eosinphils 0.1 thou/uL (0.0-0.7); #Lymphocytes 1.5 thou/uL (1.20-3.40); #Neutrophils 9.8 thou/uL (1.40-6.50); %Basophils 0.2 % (0.0-1.0); %Eosinophils 0.7 % (0.0-10.0); %Lymphocytes 12.2 % (21.0-51.0); %Monocytes 7.7 % (0.0-10.0); %Neutrophils 79.3 % (42.0-75.0); Mean Corpuscular HGB CONC 33.3 g/dL (32.0-36.0); Mean Corpuscular Hemoglobin 28.4 pg (27.0-31.0); Mean Corpuscular Volume 85.3 fL (78.0-98.0); Mean Platelet Volume 8.9 fL (7.4-10.4); Platelet Count 188 thou/uL (130-400); RBC Distribution Width 11.8 % (11.5-14.5); Red Blood Cell (RBC) Count 3.19 mill/uL (4.20-5.40); White Blood Cell (WBC) Count 12.3 thou/uL (4.8-10.8)
[2018-10-07] MEDS: Lisinopril 10 MG TAB PO SCH (10:24)
[2018-10-07] MEDS ORDERED: Metoprolol Tartrate 25 MG TAB PO SCH ×2 (10:47→11:00)
[2018-10-07] MEDS: Aspirin Chewable 81 MG TAB PO SCH (11:47)
[2018-10-07] MEDS ORDERED: Potassium Chloride 20 MEQ TAB PO SCH ×2 (12:00→13:30)
[2018-10-07 12:55] LABS: Iron 21 ug/dL (50-170); Iron Binding Capacity, Total 189 mcg/dL (265-497)
[2018-10-07] MEDS ORDERED: Sodium Chloride 0.9% 500 ML IVPB SCH (13:30)
[2018-10-07 14:23] LABS: Ferritin 239.25 ng/mL (10-291)
[2018-10-07 14:36] LABS: HBCM Index 0.05 S/CO (0-0.79); Hep A IgM AB Non-Reactive (NonReactive); Hep B Surf Ag Non-Reactive S/CO (NonReactive); Hep C IgG Ab Non-Reactive (NonReactive); Hep C Index 0.03 S/CO (0-0.79); Hepatitis B Core IgM Abs Non-Reactive (NonReactive)
[2018-10-07] MEDS ORDERED: Dronedarone HCl 400 MG TAB PO SCH (17:00)
--- NOTE | 2018-10-07 17:04 | CON ---
DATE OF CONSULTATION: 10/07/2018 PRIMARY ANIMAL TAXONOMIST: Joseline Conner MD REASON FOR CONSULTATION: Paroxysmal atrial fibrillation. HISTORY OF PRESENT ILLNESS: Ms. Moran is a very pleasant 82-year-old woman. She was admitted to the hospital yesterday with weight loss and anemia. The patient reported that she unintentionally lost 30 to 40 pounds and also had some anemia. She has increased liver function tests with AST to 103, bilirubin 1.9. Complaining of weight loss, lack of appetite, and constipation. The patient developed atrial fibrillation with a rapid ventricular response. She was transferred to telemetry this morning. She was given a dose of intravenous diltiazem and converted to sinus rhythm. PAST HISTORY: The patient was previously seen and evaluated. She was seen by Dr. Conner in November 2013 with some shortness of breath, but no chest pain. The patient had undergone cardiac catheterization in 2005. Mild coronary artery disease in 2008 and was noted to have mild bradycardia. The notes from [facility], March 2013, indicated that the previous catheterization showing only mild nonobstructive coronary artery disease on a catheterization by Dr. Wilson in 2005. The patient is feeling okay now, but complains of abdominal pain and constipation. She does not have any chest pain. She is not short of breath. MEDICATIONS AT HOME: 1. Simvastatin. 2. Alprazolam. 3. Aspirin. 4. Lisinopril. 5. Furosemide. 6. Eye drops. ALLERGIES: NONE KNOWN. SOCIAL HISTORY: No alcohol or tobacco abuse. The patient did lose her recently. REVIEW OF SYSTEMS: CONSTITUTIONAL: Positive for weakness and fatigue and weight loss. VISION: No changes. HEARING: No changes. PULMONARY: No cough or wheezing. GASTROINTESTINAL: Positive for weight loss and constipation. SKIN: No rashes. NEUROLOGIC: No unilateral weakness or numbness. PSYCHIATRIC: No unusual depression or anxiety. PHYSICAL EXAMINATION: GENERAL: This is a very pleasant thin elderly female. VITAL SIGNS: 5 feet 2 inches tall, 101 pounds. HEENT: Eyes, sclerae nonicteric. Mouth, mucous membranes moist. NECK: Supple. No lymphadenopathy. LUNGS: Clear. CARDIAC: Normal S1, normal S2. There is no murmur, rub, or gallop. ABDOMEN: Soft and nontender. EXTREMITIES: Warm and dry. No clubbing, cyanosis, or edema. PERTINENT LABORATORY DATA: The potassium is low at 3.3. She has had some diarrhea. She said it is "soupy." Hemoglobin is 9, creatinine is 0.48. BNP 224, AST 103, ALT 33, bilirubin 1.9. The patient did developed atrial fibrillation with a rapid rate earlier. There was some ST depression in V4, V5, V6, indicating she may have underlying coronary artery disease, which could be causing ischemia with tachycardia. ASSESSMENT: 1. Constipation, weight loss, and anemia, being evaluated by Gastroenterology. 2. Episode of atrial fibrillation with a rapid rate. 3. Diastolic heart failure. 4. Underlying coronary artery disease. At this point, certain medicines should likely be avoided, diltiazem, we will not start at this point, superintendent [employer] as she is already constipated. I will be reluctant to give her digoxin as she has already had lack of appetite. Multaq is problematic as well since her liver tests are abnormal. PLAN: 1. We will start low-dose beta blockers. 2. If necessary, low-dose digoxin could be added. 3. Dr. Conner will resume patient's care tomorrow. 4. Cannot anticoagulate at this point as she has anemia with progressively lower hemoglobin that is being evaluated for possible GI blood loss. 5. Dr. Conner will see tomorrow. Job ID: [id number]
--- NOTE | 2018-10-07 20:04 | PRG ---
DATE OF SERVICE: 10/07/2018 SUBJECTIVE: Ms. Moran went into atrial fibrillation early this morning and therefore, in talking with the nurses, her heart rate was 170 to 180. She was hypotensive. The decision was made to hold off on her endoscopies. She has been seen by Cardiology today and the nurses report they get her initiated on Cardizem drip. The patient's family notes that she complains of something in her belly and she feels like there is something stuck and she keeps asking for a laxative. The nurses report she has taken a full bowel prep last night and finished, but her stool still is not clear. MEDICATIONS: Medications here; 1. Xanax. 2. Aspirin. 3. Restasis. 4. Cardizem. 5. Potassium drip. 6. Synthroid. 7. Metoprolol. 8. Remeron. 9. Zofran. 10. Simvastatin. PHYSICAL EXAMINATION: VITAL SIGNS: Temperature 97, pulse blood pressure 149/63. GENERAL: On exam, she is frail, she is thin. She is in no distress. LUNGS: Clear. ABDOMEN: Nontender. RECTAL: Reveals a large fecal impaction. LABORATORY DATA: White count 12.3, hemoglobin is 9, platelet count 188. Sodium 136, potassium 3.3, BUN and creatinine are 6 and 0.48. Glucose 116, bilirubin 1.9, AST 103, ALT 33. Iron is 21, TIBC 189, ferritin 239. ASSESSMENT: 1. Gallstones noted on ultrasound of 06/27/2018. 2. Anemia of chronic disease. 3. Anorexia, constipation, weight loss. 4. Depression, possibly some of her symptoms related to passing of recently. 5. Fecal impaction noted on exam today. RECOMMENDATIONS: Enemas until clear. Liquid diet. We will give her some mag citrate tomorrow and proceed with EGD and colonoscopy if she is cleared from a cardiac standpoint. Job ID: [id number]
[2018-10-07] MEDS: Diltiazem 125 MG in Sodium Chloride 0.9% 100 ML IVPB SCH (20:05)
[2018-10-07] MEDS: Metoprolol Tartrate 25 MG TAB PO SCH (20:09)
[2018-10-07] MEDS: Fleet Enema 133 ML BOT PR SCH (21:51)
[2018-10-08] MEDS: cycloSPORINE 0.05% Ophthalmic Droperette EA EYE SCH ×3 (02:04→19:45)
[2018-10-08] MEDS: Bisacodyl 10 MG SUPP PR PRN ×2 (02:05→09:37)
[2018-10-08] MEDS: Fleet Enema 133 ML BOT PR SCH ×2 (05:17→11:59)
[2018-10-08] MEDS: Levothyroxine Sodium 25 MCG TAB PO SCH (05:17)
[2018-10-08] MEDS: Metoprolol Tartrate 25 MG TAB PO SCH ×2 (08:48→19:45)
[2018-10-08] MEDS: Trospium 20 MG TAB PO SCH ×2 (08:49→19:45)
[2018-10-08] MEDS: ALPRAZolam 0.5 MG TAB PO SCH ×2 (08:49→19:45)
[2018-10-08] MEDS: Aspirin Chewable 81 MG TAB PO SCH (08:49)
[2018-10-08] MEDS: Lisinopril 10 MG TAB PO SCH (08:49)
--- NOTE | 2018-10-08 09:38 | PRG ---
DATE OF SERVICE: 10/08/2018 SUBJECTIVE: Ms. Moran is doing okay, but so far has not been able to have clear stools. Apparently, she may be impacted. No chest pain or pressure. OBJECTIVE: VITAL SIGNS: Her blood pressure 142/64 and pulse 80, it is regular. LUNGS: Clear. CARDIAC: Normal S1. Normal S2. ABDOMEN: Soft and nontender. EXTREMITIES: Warm and dry. The patient did have some episodes of atrial fibrillation with a rapid rate despite metoprolol yesterday, they were nonsustained. ASSESSMENT: 1. Paroxysmal atrial fibrillation. 2. Mild coronary artery disease based on previous cardiac catheterization. 3. Diastolic heart failure, appears clinically stable. 4. Constipation. PLAN: 1. She is on intravenous diltiazem today. 2. Hopefully, she can undergo upper and lower endoscopy. 3. She is on low-dose aspirin. If her hemoglobin drops further, we would recommend stopping the aspirin. 4. She is on low-dose metoprolol. 5. Try to keep the diltiazem dose low in view of the constipation. Ultimately, one option would be to use diltiazem CD 120 mg a day and metoprolol 25 mg twice a day. The patient will need to follow up with Dr. Conner as an outpatient, her primary bonding agent. Job ID: [id number]
[2018-10-08] MEDS ORDERED: Fleet Enema 133 ML BOT FS SCH (11:00)
--- NOTE | 2018-10-08 11:14 | PQF ---
DEBRA ADRIAN VENKAT R MD [phone] [phone] CLINICAL DOCUMENTATION IMPROVEMENT CLARIFICATION FORM: ICD-10 Updated PLEASE DO AN ADDENDUM TO THE PROGRESS NOTE WITH ANY DOCUMENTATION UPDATES OR ADDITIONS AND CARRY THROUGH TO DC SUMMARY. THANK YOU. DATE: 10/08/18 ATTN:DR. Mariia ALBERT Please exercise your independent, professional judgment in responding to the clarification form. Clinical indicators are provided on the bottom of this form for your review. Please check appropriate box(s): DIASTOLIC HEART FAILURE: B. ACUITY [ ] Acute [ ] Acute on Chronic [ ] Chronic [ ] Other diagnosis [y ] Unable to determine In addition, please specify: Present on Admission (POA): [y ] Yes [ ] No [ ] Unable to determine For continuity of documentation, please document condition throughout progress notes and discharge summary. Thank You. CLINICAL INDICATORS - SIGNS / SYMPTOMS / LABS 10/05 BNP 224.2 10/05 ECHO : EF IS 55-60%, DIASTOLIC DYSFUNCTION PRESENT, LEFT ATRIUM IS MODERATELY TO SEVERELY DILATED. MILD MITRAL REGURGITATION IS PRESENT, MILD AORTIC INSUFFICIENCY . NO AORTIC STENOSIS. MODERATED TO SEVERE TRICUSPID REGURGITATION. pa SYSTOLIC PRESSURE ELEVATED AT 50 MM hG. 10/07 CONSULT ([facility]MY[facility] ) ASSESSMENT: 3) DIASTOLIC HEART FAILURE 10/08 PN ([facility]) ASSESSMENT: 3) DIASTOLIC HEART FAILUE, APPEARS CLINICALLY STABLE RISK: HX CAD (H & P ) THADAREDDY HX OF HTN (H & P ) THADAREDDY HX OF VA (H & P ) THADAREDDY ADVANCED AGE (82) TREATMENT: CARDIOLOGY CONSULT TRANSFER TO [facility] (10/07-PRESENT) SUPPLEMENTAL O2 THANK YOU! ESTEVAN (This form is maintained as a part of the permanent medical record) 2014 [employer] All Rights Reserved [email or web address] [phone] [email or web address]
[2018-10-08] MEDS ORDERED: Lidocaine 1% PF 5 ML VIAL ONE (16:17)
[2018-10-08] MEDS ORDERED: PROPOFOL 200 MG/20 ML VIAL ONE (16:17)
[2018-10-08] MEDS ORDERED: Promethazine HCl 25 MG/ML VIAL SLOW IVP PRN (16:42)
[2018-10-08] MEDS ORDERED: Promethazine HCl 25 MG/ML VIAL IM PRN (16:42)
[2018-10-08] MEDS ORDERED: Ondansetron HCl/PF 4 MG/2 ML Vial IVP PRN (16:42)
[2018-10-08] MEDS: Diltiazem 125 MG in Sodium Chloride 0.9% 100 ML IVPB SCH (17:46)
[2018-10-08] MEDS: Latanoprost 0.005% Ophth Soln 2.5 ml Bottle EA EYE SCH (19:45)
[2018-10-08] MEDS: Mirtazapine 30 MG TAB PO SCH (19:45)
[2018-10-08] MEDS: Polyethylene Glycol 3350 17 GM Packet PO SCH (19:46)
[2018-10-08] MEDS: Simvastatin 40 MG TAB PO SCH (19:46)
--- NOTE | 2018-10-08 20:53 | OP ---
DATE OF PROCEDURE: 10/08/2018 PROCEDURES PERFORMED: Esophagogastroduodenoscopy and colonoscopy with fecal disimpaction and decompression. PREPROCEDURE DIAGNOSES: 1. Anemia. 2. Occult blood positive. 3. Weight loss. 4. Constipation. POSTPROCEDURE DIAGNOSES: 1. Normal esophagogastroduodenoscopy. 2. Colonoscopy notable for large fecal impaction, which had been noted to be removed manually 2 days ago at bedside. This would be further removed at this time. There is massive distention of the colon as well, which had to be decompressed after removal of the rectal fecal impaction. RECOMMENDATIONS: 1. MiraLAX daily. 2. Full liquid diet, advance as tolerated. 3. Anemia, most likely related to anemia of chronic disease. 4. Hemoccult-positive stool, likely related to stercoral ulceration in the rectum. ANESTHESIA: TIVA. PROCEDURE IN DETAIL: The patient was informed of the risks, benefits, and possible complications of endoscopy including perforation, reaction to medication, and aspiration, informed consent was obtained. The patient was brought to the endoscopy suite, where she was sedated in gradual fashion. Once she was comfortable, bite block was placed . The endoscoped was advanced through the esophagus, stomach and second and third portions of the duodenum and slowly removed. There was good visualization of the mucosa. There was no mass, lesions, or AV malformations identified. There were normal villi in the small bowel. There was normal duodenum and there was normal retroflexion in the stomach and proximal stomach. The scope was removed. The patient was a rectal examination was performed. There was still a large fecal impaction present. This was removed manually and irrigated away to get better visualization, although the prep was still quite poor. We irrigated with about 2 L of sterile water and we were able to get a prep that was adequate. There were polyps greater than 6 mm in size. In the right colon, there were some areas we could not fully see and in the sigmoid there were some areas we could not see fully, but no large masses or obstruction were seen. Retroflexed views in the rectum were normal. The cecum was reached to visualize the terminal ileum. Care was made to look the best we could behind all folds and irrigate the best we could with 2 L water and suction irrigation to the colon's completion. The scope was removed. The patient tolerated the procedure well. There were no complications. Job ID: [id number]
[2018-10-09 05:15] LABS: #Eosinphils 0.2 thou/uL (0.0-0.7); #Lymphocytes 1.4 thou/uL (1.20-3.40); #Monocytes 0.9 thou/uL (0.11-0.59); #Neutrophils 7.2 thou/uL (1.40-6.50); %Basophils 0.5 % (0.0-1.0); %Eosinophils 2.2 % (0.0-10.0); %Lymphocytes 14.5 % (21.0-51.0); %Monocytes 8.9 % (0.0-10.0); %Neutrophils 73.9 % (42.0-75.0); Hemoglobin 9.5 g/dL (12.0-16.0); Mean Corpuscular HGB CONC 32.7 g/dL (32.0-36.0); Mean Corpuscular Hemoglobin 28.3 pg (27.0-31.0); Mean Corpuscular Volume 86.5 fL (78.0-98.0); Mean Platelet Volume 8.3 fL (7.4-10.4); Platelet Count 195 thou/uL (130-400); RBC Distribution Width 11.8 % (11.5-14.5); Red Blood Cell (RBC) Count 3.34 mill/uL (4.20-5.40); White Blood Cell (WBC) Count 9.8 thou/uL (4.8-10.8)
[2018-10-09 05:37] LABS: ALT (SGPT) 37 U/L (8-55); AST (SGOT) 34 U/L (5-34); Albumin 2.9 g/dL (3.4-4.8); Alkaline Phosphatase 64 U/L (40-150); Anion Gap 10 mmol/L (10-20); BUN (Urea Nitrogen) 6 mg/dL (9.8-20.1); Bilirubin, Total 0.9 mg/dL (0.2-1.2); Calc. Creatinine Clearance 51 mL/min (70-130); Calcium 8.4 mg/dL (7.8-10.44); Carbon Dioxide 26 mmol/L (23-31); Chloride 104 mmol/L (98-107); Estimated GFR-MDRD Greater than 90; Globulin 1.9 g/dL (2.4-3.5); Glucose 96 mg/dL (83-110); Potassium 3.4 mmol/L (3.5-5.1); Protein, Total 4.8 g/dL (6.0-8.3); Sodium 137 mmol/L (136-145)
[2018-10-09] MEDS: Levothyroxine Sodium 25 MCG TAB PO SCH (05:59)
[2018-10-09] MEDS: Polyethylene Glycol 3350 17 GM Packet PO SCH ×2 (09:11→19:44)
[2018-10-09] MEDS: Aspirin Chewable 81 MG TAB PO SCH (09:11)
[2018-10-09] MEDS: ALPRAZolam 0.5 MG TAB PO SCH (09:11)
[2018-10-09] MEDS: Lisinopril 10 MG TAB PO SCH (09:11)
[2018-10-09] MEDS: Metoprolol Tartrate 25 MG TAB PO SCH ×2 (09:11→20:57)
[2018-10-09] MEDS: Trospium 20 MG TAB PO SCH (09:11)
[2018-10-09] MEDS: cycloSPORINE 0.05% Ophthalmic Droperette EA EYE SCH ×2 (09:13→21:30)
--- NOTE | 2018-10-09 11:04 | EKG ---
Test Reason : Blood Pressure : / mmHG Vent. Rate : 076 BPM Atrial Rate : 234 BPM P-R Int : 000 ms QRS Dur : 084 ms QT Int : 390 ms P-R-T Axes : 000 -22 040 degrees QTc Int : 438 ms Normal sinus rhythm Normal ECG Baseline Artifact Present Confirmed by NELLY GAMBINO ([id number]), manuscript editor JUDIT WARREN ([id number]) on 10/09/2018 11:03:58 AM Referred By: Confirmed By:NELLY GAMBINO
[2018-10-09] MEDS: Potassium Chloride 20 MEQ TAB PO SCH ×2 (15:18→18:21)
--- NOTE | 2018-10-09 16:00 | PRG ---
DATE OF SERVICE: 10/09/2018 SUBJECTIVE: Ms. Moran is doing well. Her granddaughter and daughter are at bedside. OBJECTIVE: VITAL SIGNS: Temperature is 98, pulse 67, and blood pressure 151/67. ABDOMEN: Soft and nontender. No rebound. No guarding. GENERAL: She is frail and thin. LABORATORY DATA: White count 9.8, hemoglobin 9.5, and platelet count 95. Sodium 137, potassium 3.4, and BUN and creatinine are 6 and 0.5. Liver function tests normal. Albumin 2.9. Protein 4.8. ASSESSMENT: 1. Anorexia and weight loss. 2. Mild anemia. 3. Depression. 4. Atrial fibrillation. 5. Previous evaluation including CAT scan of the abdomen and pelvis in 11/2017, normal. 6. She had fecal impaction that removed for colonoscopy. Upper and lower endoscopies were negative. RECOMMENDATIONS: Recommend the patient get up out of bed and start moving around. Continue present medications. If she is too sleepy, Remeron 30 mg at bedtime will be reduced to 15 mg. We will continue to follow along with you. Job ID: [id number]
[2018-10-09] MEDS: Latanoprost 0.005% Ophth Soln 2.5 ml Bottle EA EYE SCH (20:56)
[2018-10-09] MEDS: ALPRAZolam 0.25 MG TAB PO SCH (20:56)
[2018-10-09] MEDS: Simvastatin 40 MG TAB PO SCH (20:57)
[2018-10-09] MEDS: Mirtazapine 30 MG TAB PO SCH (20:57)
[2018-10-10] MEDS: Levothyroxine Sodium 25 MCG TAB PO SCH (05:45)
[2018-10-10] MEDS: Trospium 20 MG TAB PO SCH (09:03)
[2018-10-10] MEDS: Polyethylene Glycol 3350 17 GM Packet PO SCH ×2 (09:03→21:09)
[2018-10-10] MEDS: Aspirin Chewable 81 MG TAB PO SCH (09:04)
[2018-10-10] MEDS: ALPRAZolam 0.25 MG TAB PO SCH ×2 (09:04→21:08)
[2018-10-10] MEDS: Lisinopril 10 MG TAB PO SCH (09:04)
[2018-10-10] MEDS: PARoxetine 20 MG TAB PO SCH (09:04)
[2018-10-10] MEDS: cycloSPORINE 0.05% Ophthalmic Droperette EA EYE SCH ×2 (09:05→21:09)
[2018-10-10] MEDS: Metoprolol Tartrate 25 MG TAB PO SCH ×2 (09:05→21:08)
[2018-10-10] MEDS: Milk Of Magnesia 30 ML UDCUP PO PRN (17:57)
[2018-10-10] MEDS: Simvastatin 40 MG TAB PO SCH (21:08)
[2018-10-10] MEDS: Latanoprost 0.005% Ophth Soln 2.5 ml Bottle EA EYE SCH (21:08)
[2018-10-10] MEDS: Mirtazapine 15 MG TAB PO SCH (21:08)
[2018-10-11 05:53] LABS: Anion Gap 10 mmol/L (10-20); BUN (Urea Nitrogen) 10 mg/dL (9.8-20.1); Calc. Creatinine Clearance 49 mL/min (70-130); Calcium 8.8 mg/dL (7.8-10.44); Carbon Dioxide 27 mmol/L (23-31); Chloride 104 mmol/L (98-107); Estimated GFR-MDRD Greater than 90; Glucose 91 mg/dL (83-110); Potassium 4.6 mmol/L (3.5-5.1); Sodium 136 mmol/L (136-145)
[2018-10-11] MEDS: Levothyroxine Sodium 25 MCG TAB PO SCH (05:56)
[2018-10-11] MEDS: ALPRAZolam 0.25 MG TAB PO SCH ×2 (09:23→21:01)
[2018-10-11] MEDS: PARoxetine 20 MG TAB PO SCH (09:23)
[2018-10-11] MEDS: Aspirin Chewable 81 MG TAB PO SCH (09:23)
[2018-10-11] MEDS: Trospium 20 MG TAB PO SCH (09:23)
[2018-10-11] MEDS: cycloSPORINE 0.05% Ophthalmic Droperette EA EYE SCH ×2 (09:24→21:01)
[2018-10-11] MEDS: Polyethylene Glycol 3350 17 GM Packet PO SCH ×2 (09:24→21:00)
[2018-10-11] MEDS: Metoprolol Tartrate 25 MG TAB PO SCH ×2 (09:24→21:00)
[2018-10-11] MEDS: Lisinopril 10 MG TAB PO SCH (09:24)
--- NOTE | 2018-10-11 10:02 | PRG ---
DATE OF SERVICE: 10/11/2018 SUBJECTIVE: Ms. Moran feels much better. Really since the fecal impaction was resolved, she has been feeling much better. She has been maintaining sinus rhythm. No complaints. OBJECTIVE: VITAL SIGNS: Most recent blood pressure 126/59, pulse 68 and regular. LUNGS: Clear. CARDIAC: Normal S1 and normal S2. ASSESSMENT: 1. Paroxysmal atrial fibrillation. No recurrence. 2. History of fecal impaction. 3. Mild anemia. PLAN: 1. She is currently on diltiazem CD 120 mg a day. 2. Metoprolol 25 mg twice a day, tartrate. 3. She has not been started on anticoagulation now due to hemoglobin being still low at 9.5 and maintaining sinus rhythm, but that should be considered in the future if her hemoglobin is stable. 4. We will need to follow up with Dr. Conner in a few weeks. She is stable. Consideration for starting anticoagulation and consideration for stopping diltiazem could be given in view of the history of constipation. Job ID: [id number]
[2018-10-11 12:31] LABS: ANA Symphony (Qualitative) Negative (Negative); ANA Symphony (Quantitative) 0.1 Ratio (< 0.7 Negative); EliA Vaculitis New Method **** NEW METHOD ****; Mitochondrial Ab 0.7 U/mL (<4 Negative); dsDNA IgG Antibody 0.5 IU/mL (<10 Negative)
[2018-10-11 12:39] VITALS: BMI 16.8
[2018-10-11] MEDS: Milk Of Magnesia 30 ML UDCUP PO PRN (16:56)
[2018-10-11] MEDS: Mirtazapine 15 MG TAB PO SCH (21:00)
[2018-10-11] MEDS: Simvastatin 40 MG TAB PO SCH (21:00)
[2018-10-11] MEDS: Latanoprost 0.005% Ophth Soln 2.5 ml Bottle EA EYE SCH (21:00)
--- NOTE | 2018-10-11 22:51 | PRG ---
DATE OF SERVICE: 10/10/2018 SUBJECTIVE: Ms. Moran is eating better. She wants a laxative. She needs to go to the bathroom. In talking with her family, she takes Ex-Lax [id number] every other day all the time. She is eating better today. She ate breakfast taco of beans. She also ate an egg, and she has had some a little bit of lunch today. Last night, she ate some pasta. OBJECTIVE: VITAL SIGNS: Temperature 98.2, respirations 18, pulse , blood pressure 144/63. GENERAL: The patient is little bit better. Affect is a little bit more animated. She has some family in the room. ABDOMEN: Soft and nontender. LABORATORY DATA: None today. ASSESSMENT: Anorexia. She has had a CAT scan and upper and lower endoscopy, which were nondiagnostic. I suspect a lot of this is depression with her passing just this past fall. She has been started on some antidepressants and appetite stimulants. I agree dropping the mirtazapine to 15 mg at bedtime as she had been a little bit sleepy during the day previously. We will go ahead and give a bit of milk of magnesia p.r.n., and we will get a cortisol in the morning to make sure she does not have any adrenal insufficiency and not missing something else. Job ID: [id number]
[2018-10-12] MEDS: Levothyroxine Sodium 25 MCG TAB PO SCH (05:56)
[2018-10-12 06:01] LABS: #Basophils 0.1 thou/uL (0.0-0.2); #Eosinphils 0.3 thou/uL (0.0-0.7); #Lymphocytes 1.7 thou/uL (1.20-3.40); #Monocytes 1.1 thou/uL (0.11-0.59); #Neutrophils 4.9 thou/uL (1.40-6.50); %Basophils 0.7 % (0.0-1.0); %Eosinophils 3.1 % (0.0-10.0); %Lymphocytes 21.5 % (21.0-51.0); %Monocytes 13.7 % (0.0-10.0); %Neutrophils 60.9 % (42.0-75.0); Hemoglobin 10.4 g/dL (12.0-16.0); Mean Corpuscular HGB CONC 32.5 g/dL (32.0-36.0); Mean Corpuscular Hemoglobin 28.2 pg (27.0-31.0); Mean Corpuscular Volume 86.6 fL (78.0-98.0); Mean Platelet Volume 7.6 fL (7.4-10.4); Platelet Count 273 thou/uL (130-400); Red Blood Cell (RBC) Count 3.69 mill/uL (4.20-5.40); White Blood Cell (WBC) Count 8.1 thou/uL (4.8-10.8)
[2018-10-12 06:22] LABS: ALT (SGPT) 27 U/L (8-55); AST (SGOT) 19 U/L (5-34); Albumin 3.2 g/dL (3.4-4.8); Alkaline Phosphatase 73 U/L (40-150); Anion Gap 11 mmol/L (10-20); BUN (Urea Nitrogen) 9 mg/dL (9.8-20.1); Bilirubin, Total 0.3 mg/dL (0.2-1.2); Calc. Creatinine Clearance 41 mL/min (70-130); Calcium 8.5 mg/dL (7.8-10.44); Carbon Dioxide 27 mmol/L (23-31); Chloride 101 mmol/L (98-107); Estimated GFR-MDRD 85; Globulin 2.3 g/dL (2.4-3.5); Glucose 97 mg/dL (83-110); Potassium 4.5 mmol/L (3.5-5.1); Protein, Total 5.5 g/dL (6.0-8.3); Sodium 134 mmol/L (136-145)
[2018-10-12] MEDS: Polyethylene Glycol 3350 17 GM Packet PO SCH ×2 (08:22→20:18)
[2018-10-12] MEDS: Trospium 20 MG TAB PO SCH (08:22)
[2018-10-12] MEDS: PARoxetine 20 MG TAB PO SCH (08:23)
[2018-10-12] MEDS: Lisinopril 10 MG TAB PO SCH (08:23)
[2018-10-12] MEDS: Metoprolol Tartrate 25 MG TAB PO SCH ×2 (08:23→20:18)
[2018-10-12] MEDS: ALPRAZolam 0.25 MG TAB PO SCH ×2 (08:23→20:18)
[2018-10-12] MEDS: cycloSPORINE 0.05% Ophthalmic Droperette EA EYE SCH ×2 (08:24→20:28)
--- NOTE | 2018-10-12 19:21 | PRG ---
DATE OF SERVICE: 10/12/2018 SUBJECTIVE: Ms. Moran has had some loose stools, so she has had her diuretics cut back. OBJECTIVE: VITAL SIGNS: Temperature 98, pulse 66, blood pressure 116/71. LUNGS: Clear. HEART: Regular rate and rhythm without clicks or murmurs. ABDOMEN: Soft and nontender. LABORATORY DATA: Hemoglobin is 10.4. Electrolytes normal. Albumin is 3.2. Hep A, B, C are negative. ASSESSMENT: 1. Fecal impaction, resolved. 2. Anemia of chronic disease with heme-positive stool. There are no signs of overt bleeding and she had a normal CAT scan back in January for symptoms of anorexia and weight loss, that was normal. 3. Atrial fibrillation. If she needs to restart anticoagulation, she can be restarted on that. 4. Nutrition. Her albumin is improving. It is now 3.2. LFTs are normal. She is eating about 50% of her meals, which is better than when she came in. She has been recently started on antidepressant. RECOMMENDATIONS: 1. Restart anticoagulation when necessary from a cardiac standpoint. 2. Bowel regimen if needed for constipation. Agree with antidepressants, hopefully that will help some of her appetite. We will follow from a distance. If I can be of any further assistance, please do not hesitate to contact me. She can follow up with Dr. Granger and our office as needed. Job ID: [id number]
--- NOTE | 2018-10-12 19:22 | PRG ---
DATE OF SERVICE: 10/12/2018 SUBJECTIVE: Dean had diarrhea yesterday that has resolved now. They cut back on her laxative regimen. She is still not eating much. She has a little bit of a mild headache. OBJECTIVE: VITAL SIGNS: Stable. GENERAL: She is small, thin, no distress. ABDOMEN: Soft and nontender. ASSESSMENT: 1. Chronic anemia. No signs of gastrointestinal bleeding on endoscopy. At this point in time, iron studies consistent with anemia of chronic disease with low iron and TIBC and elevated ferritin. 2. Anorexia, likely related to some mild depression. Her of over 60 years just last fall. Previous CAT scan of the abdomen and pelvis last fall for similar symptoms was negative. 3. Atrial fibrillation. 4. Chronic constipation. RECOMMENDATIONS: Laxatives as needed. If the patient needs to be back on anticoagulation, I think that is reasonable. We will follow from a distance. If there are any signs of overt hemorrhage or there would be any further assistance, please do not hesitate to re-contact me. If needed she can follow up with her primary pipe caulker in the office. Job ID: [id number]
[2018-10-12] MEDS: Simvastatin 40 MG TAB PO SCH (20:18)
[2018-10-12] MEDS: Mirtazapine 15 MG TAB PO SCH (20:18)
[2018-10-12] MEDS: Latanoprost 0.005% Ophth Soln 2.5 ml Bottle EA EYE SCH (20:28)
[2018-10-12] MEDS: Acetaminophen 325 MG TAB PO PRN (20:31)
[2018-10-13] MEDS: Levothyroxine Sodium 25 MCG TAB PO SCH (05:49)
[2018-10-13] MEDS: ALPRAZolam 0.25 MG TAB PO SCH ×2 (08:36→21:11)
[2018-10-13] MEDS: Lisinopril 10 MG TAB PO SCH (08:36)
[2018-10-13] MEDS: Metoprolol Tartrate 25 MG TAB PO SCH ×2 (08:36→21:12)
[2018-10-13] MEDS: Polyethylene Glycol 3350 17 GM Packet PO SCH ×2 (08:36→21:14)
[2018-10-13] MEDS: Trospium 20 MG TAB PO SCH (08:36)
[2018-10-13] MEDS: PARoxetine 20 MG TAB PO SCH (08:36)
[2018-10-13] MEDS: cycloSPORINE 0.05% Ophthalmic Droperette EA EYE SCH (08:41)
--- NOTE | 2018-10-13 15:42 | PQF ---
DEBRA ADRIAN GORDON G MD [id number] CLINICAL DOCUMENTATION IMPROVEMENT CLARIFICATION FORM: ICD-10 Updated PLEASE DO AN ADDENDUM TO THE PROGRESS NOTE WITH ANY DOCUMENTATION UPDATES OR ADDITIONS AND CARRY THROUGH TO DC SUMMARY. THANK YOU. DATE: 10/13/18 ATTN:DR. Melvi CASTANON Please exercise your independent, professional judgment in responding to the clarification form. Clinical indicators are provided on the bottom of this form for your review Please check appropriate box(s): DIASTOLIC HEART FAILURE: B. ACUITY [ ] Acute on Chronic [ ] Chronic [ ] Other diagnosis _NOT MY PATIENT [ ] Unable to determine In addition, please specify: Present on Admission (POA): [ ] Yes [ ] No [ ] Unable to determine For continuity of documentation, please document condition throughout progress notes and discharge summary. Thank You. CLINICAL INDICATORS - SIGNS / SYMPTOMS / LABS 10/05 BNP 224.2 10/05 ECHO : EF IS 55-60%, DIASTOLIC DYSFUNCTION PRESENT, LEFT ATRIUM IS MODERATELY TO SEVERELY DILATED. MILD MITRAL REGURGITATION IS PRESENT, MILD AORTIC INSUFFICIENCY . NO AORTIC STENOSIS. MODERATED TO SEVERE TRICUSPID REGURGITATION. pa SYSTOLIC PRESSURE ELEVATED AT 50 MM hG. 10/07 CONSULT (JAZMYNE ) ASSESSMENT: 3) DIASTOLIC HEART FAILURE 10/08 PN (JAZMYNE) ASSESSMENT: 3) DIASTOLIC HEART FAILURE, APPEARS CLINICALLY STABLE RISK: HX CAD (H & P ) THADAREDDY HX OF HTN (H & P ) THADAREDDY HX OF OR (H & P ) THADAREDDY ADVANCED AGE (82) TREATMENT: CARDIOLOGY CONSULT TRANSFER TO TELEMENTARY (10/07-PRESENT) SUPPLEMENTAL O2 THANK YOU! [employer]EV[employer] (This form is maintained as a part of the permanent medical record) 2014 [employer]. All Rights Reserved [email or web address] [phone] MTDD
[2018-10-13] MEDS ORDERED: Apixaban 2.5 MG TAB PO SCH (21:00)
[2018-10-13] MEDS: Mirtazapine 15 MG TAB PO SCH (21:12)
[2018-10-13] MEDS: Apixaban 5 MG TAB PO SCH (21:12)
[2018-10-13] MEDS: Latanoprost 0.005% Ophth Soln 2.5 ml Bottle EA EYE SCH (21:13)
[2018-10-13] MEDS: Simvastatin 40 MG TAB PO SCH (21:14)
[2018-10-14] MEDS: cycloSPORINE 0.05% Ophthalmic Droperette EA EYE SCH ×3 (02:18→20:09)
[2018-10-14] MEDS: Levothyroxine Sodium 25 MCG TAB PO SCH (05:28)
[2018-10-14] MEDS: ALPRAZolam 0.25 MG TAB PO SCH ×2 (08:44→20:07)
[2018-10-14] MEDS: Apixaban 5 MG TAB PO SCH ×2 (08:45→20:07)
[2018-10-14] MEDS: PARoxetine 20 MG TAB PO SCH (08:45)
[2018-10-14] MEDS: Trospium 20 MG TAB PO SCH (08:46)
[2018-10-14] MEDS: Polyethylene Glycol 3350 17 GM Packet PO SCH ×2 (08:46→20:09)
[2018-10-14] MEDS: Lisinopril 10 MG TAB PO SCH (08:46)
[2018-10-14] MEDS: Metoprolol Tartrate 25 MG TAB PO SCH ×2 (08:48→20:09)
--- NOTE | 2018-10-14 11:10 | PQF ---
DEBRA ADRIAN KENNON D MD [id number] CLINICAL DOCUMENTATION IMPROVEMENT CLARIFICATION FORM: ICD-10 Updated PLEASE DO AN ADDENDUM TO THE PROGRESS NOTE WITH ANY DOCUMENTATION UPDATES OR ADDITIONS AND CARRY THROUGH TO DC SUMMARY. THANK YOU. DATE: 10/14/18 ATTN:DR. Ivon SAMANO Please exercise your independent, professional judgment in responding to the clarification form. Clinical indicators are provided on the bottom of this form for your review. Please check appropriate box(s): DIASTOLIC HEART FAILURE: B. ACUITY [ ] Acute [ ] Acute on Chronic [ ] Chronic [ ] Other diagnosis [ ] Unable to determine In addition, please specify: Present on Admission (POA): [ ] Yes [ ] No [ ] Unable to determine For continuity of documentation, please document condition throughout progress notes and discharge summary. Thank You. CLINICAL INDICATORS - SIGNS / SYMPTOMS / LABS 10/05 BNP 224.2 10/05 ECHO : EF IS 55-60%, DIASTOLIC DYSFUNCTION PRESENT, LEFT ATRIUM IS MODERATELY TO SEVERELY DILATED. MILD MITRAL REGURGITATION IS PRESENT, MILD AORTIC INSUFFICIENCY . NO AORTIC STENOSIS. MODERATED TO SEVERE TRICUSPID REGURGITATION. pa SYSTOLIC PRESSURE ELEVATED AT 50 MM hG. 10/07 CONSULT (JAZMYNE ) ASSESSMENT: 3) DIASTOLIC HEART FAILURE 10/08 PN (JAZMYNE) ASSESSMENT: 3) DIASTOLIC HEART FAILURE, APPEARS CLINICALLY STABLE RISK: HX CAD (H & P ) THADAREDDY HX OF HTN (H & P ) THADAREDDY HX OF NC (H & P ) THADAREDDY ADVANCED AGE (82) TREATMENT: CARDIOLOGY CONSULT TRANSFER TO TELEMENTARY (10/07-PRESENT) SUPPLEMENTAL O2 THANK YOU! ESTEVAN (This form is maintained as a part of the permanent medical record) 2014 [email or web address] All Rights Reserved [email or web address] [phone] MTDD
[2018-10-14] MEDS: Simvastatin 40 MG TAB PO SCH (20:07)
[2018-10-14] MEDS: Acetaminophen 325 MG TAB PO PRN (20:07)
[2018-10-14] MEDS: Mirtazapine 15 MG TAB PO SCH (20:07)
[2018-10-14] MEDS: Latanoprost 0.005% Ophth Soln 2.5 ml Bottle EA EYE SCH (20:08)
[2018-10-15] MEDS: Levothyroxine Sodium 25 MCG TAB PO SCH (05:50)
[2018-10-15 08:04] VITALS: TEMP 98
[2018-10-15] MEDS: PARoxetine 20 MG TAB PO SCH (08:16)
[2018-10-15] MEDS: Metoprolol Tartrate 25 MG TAB PO SCH (08:16)
[2018-10-15] MEDS: Apixaban 5 MG TAB PO SCH (08:16)
[2018-10-15] MEDS: ALPRAZolam 0.25 MG TAB PO SCH (08:17)
[2018-10-15] MEDS: Polyethylene Glycol 3350 17 GM Packet PO SCH (08:17)
[2018-10-15] MEDS: Trospium 20 MG TAB PO SCH (08:17)
[2018-10-15] MEDS: cycloSPORINE 0.05% Ophthalmic Droperette EA EYE SCH (08:19)
[2018-10-15 13:19] VITALS: BP 114/58
--- NOTE | 2018-10-18 08:34 | DIS ---
DATE OF ADMISSION: 10/05/2018 DATE OF DISCHARGE: 10/15/2018 ADMITTING DIAGNOSES: 1. Severe diarrhea. 2. Hyponatremia. 3. Hypokalemia. 4. Acute kidney injury. 5. Laxative abuse. 6. Anorexia and weight loss. 7. History of depression, anxiety. 8. Hypertension. 9. Hypothyroidism. 10. Leukocytosis. FINAL DIAGNOSES: 1. Anorexia and weight loss, which is due to severe protein-calorie malnutrition , improved. 2. Severe constipation and fecal impaction, improved. 3. Anemia of chronic disease, improved. 4. Atrial fibrillation, new onset, converted to normal sinus rhythm. 5. Hypertension. 6. Hypothyroidism. 7. Anxiety and depression. BRIEF SUMMARY OF HOSPITAL COURSE: Ms. Moran is an 82 year-old female admitted because of nausea, vomiting, anorexia and weight loss. The patient brought in here for diarrhea. She was found to be severely hypokalemic and hyponatremic. Her potassium was 3.2, that corrected and improved to 4.5. Sodium was 122, improved to 134. BUN also improved. The patient has taken a lot of laxatives at home and developed diarrhea after that, but in the hospital, she was actually found to have severe constipation with fecal impaction. The patient was seen by GI because of protein-calorie malnutrition. The patient underwent EGD and colonoscopy. Her EGD was normal. Colonoscopy revealed fecal impaction. The patient was started on Miralax and other medications for constipation. The patient's constipation improved, her appetite improved. She started eating better. In the hospital, the patient also developed atrial fibrillation, new onset. She was started initially on Cardizem infusion, later she converted to sinus rhythm. Consultation was done with Cardiology. The patient has seen Dr. Coronado, so we felt the patient possibly has a paroxysmal atrial fibrillation and needs to be on anticoagulation after GI workup and if there is no bleeding. So, she was started on Eliquis after she was stable. The patient still feeling weak and unable to walk much, so she was evaluated for inpatient rehab. She was accepted. At the time of discharge, she was stable. Vital signs stable. Lungs, clear to auscultation. Abdomen is soft, nontender. DISCHARGE MEDICATIONS: 1. Simvastatin 40 mg daily. 2. Levothyroxine 25 mcg daily. 3. Xanax 0.25 b.i.d. 4. Aspirin 81 mg daily. 5. VESIcare 10 mg daily. 6. Restasis eye drops one drop b.i.d. both eyes. 7. Zofran p.r.n. 8. Milk of magnesia p.r.n. 9. Dulcolax p.r.n. 10. Tylenol p.r.n. 11. MiraLAX 17 g b.i.d. 12. Paxil 20 mg daily. 13. Metoprolol 25 b.i.d. 14. Diltiazem 120 mg daily. 15. Eliquis 5 mg b.i.d. 16. Lisinopril 10 mg daily. The patient will continue physical therapy at the rehab. She will come for followup in 2 weeks. Job ID: [id number] [facility]
== END 2018-10-15 14:42 | DRG 641 ==
LOC: ERS 08:55 → T4-B 13:56 → 2NO 10-07 08:40 → T4-B 10-11 14:14
PROVIDERS: ADMIT Internal Medicine; ATTEND Internal Medicine
PROC: 0DJ08ZZ Inspection of Upper Intestinal Tract, Via Natural or Artificial Opening Endoscopic (ICD-10-PCS; principal; 2018-10-08)
PROC: 0DJD8ZZ Inspection of Lower Intestinal Tract, Via Natural or Artificial Opening Endoscopic (ICD-10-PCS; 2018-10-08)
DX: E87.1 Hypo-osmolality and hyponatremia (principal); N17.9 Acute kidney failure, unspecified; Z68.1 Body mass index [BMI] 19.9 or less, adult; E03.9 Hypothyroidism, unspecified; F32.9 Major depressive disorder, single episode, unspecified; F41.9 Anxiety disorder, unspecified; E87.6 Hypokalemia; E86.1 Hypovolemia; E78.5 Hyperlipidemia, unspecified; I25.10 Atherosclerotic heart disease of native coronary artery without angina pectoris; F55.2 Abuse of laxatives; D72.829 Elevated white blood cell count, unspecified; R79.89 Other specified abnormal findings of blood chemistry; D63.8 Anemia in other chronic diseases classified elsewhere; K56.41 Fecal impaction; K63.5 Polyp of colon; I10 Essential (primary) hypertension; I48.0 Paroxysmal atrial fibrillation; R63.0 Anorexia; I25.2 Old myocardial infarction; Z90.710 Acquired absence of both cervix and uterus
CPT/HCPCS: 36415; 51701; 71045; 80048; 80053; 80074; 81003; 81015; 82274; 82533; 82607; 82728; 83516; 83540; 83550; 83735; 83880; 84443; 85025; 86038; 86225; 93005; 93010; 93306; 96360; A4353; J2001; J2704; J3490

== ENCOUNTER 2019-02-13 08:24 | Emergency (ER) | payer MEDICARE, MEDICAID ==
[2019-02-13] MEDS ORDERED: Ondansetron ODT 4 MG TAB ONE (09:14)
[2019-02-13] MEDS ORDERED: Morphine 2 MG/ML SYRINGE ONE (09:14)
[2019-02-13 09:27] LABS: #Basophils 0.1 thou/uL (0.0-0.2); #Eosinphils 0.2 thou/uL (0.0-0.7); #Lymphocytes 1.3 thou/uL (1.20-3.40); #Monocytes 0.7 thou/uL (0.11-0.59); #Neutrophils 6.2 thou/uL (1.40-6.50); %Basophils 0.7 % (0.0-1.0); %Lymphocytes 15.4 % (21.0-51.0); %Monocytes 8.5 % (0.0-10.0); %Neutrophils 73.4 % (42.0-75.0); Hemoglobin 10.7 g/dL (12.0-16.0); Mean Corpuscular HGB CONC 32.6 g/dL (32.0-36.0); Mean Corpuscular Hemoglobin 27.7 pg (27.0-31.0); Mean Corpuscular Volume 85.2 fL (78.0-98.0); Mean Platelet Volume 8.8 fL (7.4-10.4); Platelet Count 237 thou/uL (130-400); RBC Distribution Width 12.4 % (11.5-14.5); Red Blood Cell (RBC) Count 3.84 mill/uL (4.20-5.40); White Blood Cell (WBC) Count 8.4 thou/uL (4.8-10.8)
[2019-02-13 09:53] LABS: ALT (SGPT) 10 U/L (8-55); AST (SGOT) 18 U/L (5-34); Albumin 4.2 g/dL (3.4-4.8); Alkaline Phosphatase 102 U/L (40-110); Anion Gap 10 mmol/L (10-20); BUN (Urea Nitrogen) 14 mg/dL (9.8-20.1); Bilirubin, Total 0.3 mg/dL (0.2-1.2); Calc. Creatinine Clearance 0 mL/min (70-130); Calcium 9.1 mg/dL (7.8-10.44); Carbon Dioxide 24 mmol/L (23-31); Chloride 105 mmol/L (98-107); Estimated GFR-MDRD 72; Globulin 2.5 g/dL (2.4-3.5); Glucose 93 mg/dL (83-110); Lipase 18 U/L (8-78); Protein, Total 6.7 g/dL (6.0-8.3); Sodium 135 mmol/L (136-145)
--- NOTE | 2019-02-13 11:12 | CT ---
CT ABDOMEN AND PELVIS WITH IV CONTRAST: Date: 02/13/19 HISTORY: Abdominal pain. Lack of appetite. COMPARISON: 11/19/17 and 04/06/13. FINDINGS: The lung bases are clear. The liver demonstrates decreased attenuation compared to the spleen consist ent with fatty infiltration. No hepatic mass or abnormal biliary ductal dilatation is seen. No calcif ied gallstones are noted. The spleen, pancreas, adrenal glands, and kidneys are normal. The patient i s post hysterectomy. Soft tissue fullness in the right adnexa is stable since 2012. No free air, free fluid, or lymphadenopathy is seen. There is edema in the presacral fat with distend ed fecal-filled rectum. There is fluid and fecal material in the colon. The urinary bladder is well d istended and unremarkable. There are vascular calcifications without evidence of aneurysmal dilatatio n of the abdominal aorta. Duodenal diverticula are again seen. There are degenerative changes in the spine. IMPRESSION: 1. Fatty liver. 2. Duodenal diverticula. 3. Constipation. 4. Findings are suspicious for stercoral colitis. POS: JOANNE
[2019-02-13 11:38] LABS: Bilirubin Negative (Negative); Blood, Urine Negative (Negative); Clarity Clear (Clear); Glucose, Urine (Dipstick) Normal (Negative); Leukocyte Negative Leu/uL (Negative); Nitrite Negative (Negative); Protein, Urine (Dipstick) Negative (Neg-Trace); Urobilinogen Normal mg/dL (Less than 2)
[2019-02-13] MEDS ORDERED: ISOVUE-370 76%-LOCM 1 ML ONE (12:12)
== END 2019-02-13 12:33 | disposition home or self-care (01) ==
LOC: ERS 08:24
DX: K56.41 Fecal impaction (principal); K52.89 Other specified noninfective gastroenteritis and colitis; E03.9 Hypothyroidism, unspecified; E78.00 Pure hypercholesterolemia, unspecified; E78.5 Hyperlipidemia, unspecified; I25.2 Old myocardial infarction; I10 Essential (primary) hypertension; F41.9 Anxiety disorder, unspecified; Z79.899 Other long term (current) drug therapy
CPT/HCPCS: 51701; 74177; 80053; 81003; 83690; 85025; 87086; 96374; A4353; J2270; Q0162; Q9966

== ENCOUNTER 2019-06-16 11:05 | Emergency (ER) | payer MEDICARE, MEDICAID ==
--- NOTE | 2019-06-16 11:37 | RAD ---
XR Chest 1 View Portable History: Vomiting and dizziness Comparison: Radiograph September 2018 Findings: Scar within the left upper lobe. No confluent airspace consolidation, pneumothorax, or effu tayler. Low-grade S-shaped scoliosis thoracic spine. Cardiac silhouette and mediastinal contours are similar. Impression: No acute intrathoracic abnormality nor significant change.
[2019-06-16 12:34] LABS: #Lymphocytes 0.8 thou/uL (1.20-3.40); #Monocytes 0.5 thou/uL (0.11-0.59); #Neutrophils 5.1 thou/uL (1.40-6.50); %Basophils 0.5 % (0.0-1.0); %Eosinophils 0.4 % (0.0-10.0); %Lymphocytes 13.1 % (21.0-51.0); %Monocytes 7.4 % (0.0-10.0); %Neutrophils 78.6 % (42.0-75.0); Hemoglobin 11.1 g/dL (12.0-16.0); Mean Corpuscular HGB CONC 33.9 g/dL (32.0-36.0); Mean Corpuscular Volume 85.7 fL (78.0-98.0); Mean Platelet Volume 8.7 fL (7.4-10.4); Platelet Count 198 thou/uL (130-400); RBC Distribution Width 12.4 % (11.5-14.5); Red Blood Cell (RBC) Count 3.82 mill/uL (4.20-5.40); White Blood Cell (WBC) Count 6.4 thou/uL (4.8-10.8)
--- NOTE | 2019-06-16 12:40 | CT ---
CT BRAIN NONCONTRAST: DATE: 06/16/2019. HISTORY: An 83-year-old female with dizziness and headache with nausea and vomiting. FINDINGS: There is no midline shift or any other mass effect. There is no evidence of acute intracranial hemor rhage, large cortical infarct, obstructive hydrocephalus, or extraaxial fluid collection. The calvar ium is intact. IMPRESSION: No acute intracranial findings. jn [] POS: [facility]
[2019-06-16] MEDS ORDERED: Meclizine HCl 25 MG TAB ONE (12:56)
[2019-06-16 13:05] LABS: ALT (SGPT) 10 U/L (8-55); AST (SGOT) 15 U/L (5-34); Alkaline Phosphatase 94 U/L (40-110); Anion Gap 12 mmol/L (10-20); BUN (Urea Nitrogen) 11 mg/dL (9.8-20.1); Bilirubin, Total 0.4 mg/dL (0.2-1.2); CK (CPK) 79 U/L (29-168); Calc. Creatinine Clearance 0 mL/min (70-130); Calcium 9.1 mg/dL (7.8-10.44); Carbon Dioxide 24 mmol/L (23-31); Chloride 102 mmol/L (98-107); Estimated GFR-MDRD 81; Globulin 2.1 g/dL (2.4-3.5); Glucose 108 mg/dL (83-110); Potassium 4.2 mmol/L (3.5-5.1); Protein, Total 6.1 g/dL (6.0-8.3); Sodium 134 mmol/L (136-145)
[2019-06-16] MEDS ORDERED: Diazepam 5 MG TAB ONE (14:17)
--- NOTE | 2019-06-19 01:33 | EKG ---
Test Reason : Blood Pressure : / mmHG Vent. Rate : 069 BPM Atrial Rate : 069 BPM P-R Int : 140 ms QRS Dur : 080 ms QT Int : 384 ms P-R-T Axes : 000 -23 069 degrees QTc Int : 411 ms Normal sinus rhythm Normal ECG Confirmed by DARRIAN JENSEN ([id number]), material expeditor MICHELLE RANGEL ([id number]) on 06/19/2019 1:32:42 AM Referred By: Confirmed By:DARRIAN Solorzano
== END 2019-06-16 15:30 | disposition home or self-care (01) ==
LOC: ERS 11:05
DX: R42 Dizziness and giddiness (principal); I25.10 Atherosclerotic heart disease of native coronary artery without angina pectoris; E78.5 Hyperlipidemia, unspecified; E78.00 Pure hypercholesterolemia, unspecified; I10 Essential (primary) hypertension; M19.90 Unspecified osteoarthritis, unspecified site; F41.9 Anxiety disorder, unspecified; E03.9 Hypothyroidism, unspecified; Z79.899 Other long term (current) drug therapy
CPT/HCPCS: 36415; 70450; 71045; 80053; 82550; 84484; 85025; 93005; J8597

== ENCOUNTER 2020-06-14 08:28 | Emergency (ER) | payer MEDICARE, MEDICAID ==
--- NOTE | 2020-06-14 09:02 | RAD ---
XR Chest 1 View Portable HISTORY: Bilateral lower extremity swelling COMPARISON: 06/16/2019 FINDINGS: The heart size is normal. The aorta is tortuous. The lungs are well expanded without focal areas of consolidation, pneumothorax or right pleural effusions. There is a small left pleural effusion.. IMPRESSION: Small left pleural effusion.
[2020-06-14 09:27] LABS: #Lymphocytes 1.8 thou/uL (1.20-3.40); #Monocytes 0.6 thou/uL (0.11-0.59); #Neutrophils 3.9 thou/uL (1.40-6.50); %Basophils 0.7 % (0.0-1.0); %Eosinophils 0.3 % (0.0-10.0); %Monocytes 9.7 % (0.0-10.0); %Neutrophils 61.3 % (42.0-75.0); Hemoglobin 10.7 g/dL (12.0-16.0); Mean Corpuscular HGB CONC 32.8 g/dL (32.0-36.0); Mean Corpuscular Hemoglobin 28.9 pg (27.0-31.0); Mean Corpuscular Volume 88.1 fL (78.0-98.0); Mean Platelet Volume 9.4 fL (7.4-10.4); Platelet Count 158 thou/uL (130-400); RBC Distribution Width 14.2 % (11.5-14.5); White Blood Cell (WBC) Count 6.3 thou/uL (4.8-10.8)
[2020-06-14 09:51] LABS: ALT (SGPT) 33 U/L (8-55); AST (SGOT) 31 U/L (5-34); Albumin 2.5 g/dL (3.4-4.8); Alkaline Phosphatase 82 U/L (40-110); Anion Gap 12 mmol/L (10-20); BUN (Urea Nitrogen) 20 mg/dL (9.8-20.1); Bilirubin, Total 1.1 mg/dL (0.2-1.2); Calc. Creatinine Clearance 0 mL/min (70-130); Calcium 7.5 mg/dL (7.8-10.44); Carbon Dioxide 21 mmol/L (23-31); Chloride 103 mmol/L (98-107); Globulin 2.2 g/dL (2.4-3.5); Glucose 70 mg/dL (83-110); Potassium 3.9 mmol/L (3.5-5.1); Protein, Total 4.7 g/dL (5.8-8.1); Sodium 132 mmol/L (136-145)
[2020-06-14 10:12] LABS: CKMB 1.2 ng/mL (0-6.6)
[2020-06-14] MEDS ORDERED: Furosemide 40 MG/4 ML VIAL ONE (10:41)
[2020-06-14] MEDS ORDERED: Furosemide 40 MG TAB ONE (10:47)
[2020-06-14 13:17] LABS: Troponin I 0.045 ng/mL (< 0.028)
[2020-06-14 13:23] LABS: Bilirubin Negative (Negative); Blood, Urine Negative (Negative); Clarity Clear (Clear); Glucose, Urine (Dipstick) Normal (Negative); Ketone, Urine Negative (Negative); Leukocyte 500 Leu/uL (Negative); Nitrite Negative (Negative); Protein, Urine (Dipstick) Negative (Neg-Trace); Specific Gravity, Urine 1.015 (1.002-1.036); Squamous Epithelial 0-3 HPF (0-3); WBC/HPF 21-50 HPF (0-3); pH, Urine 5.5 (5.0-9.0)
[2020-06-14 13:24] LABS: Bacteria/HPF 1+ HPF (None Seen)
[2020-06-14] MEDS ORDERED: cefTRIAXone\\ROCEPHIN 1 GM VIAL ONE (13:52)
[2020-06-14] MEDS ORDERED: Lidocaine 1% PF 5 ML VIAL ONE (13:53)
[2020-06-14] MEDS ORDERED: Lidocaine 1% w/Epinephrine 1:100K 20 ML VIAL ONE (13:57)
== END 2020-06-14 14:10 | disposition home or self-care (01) ==
LOC: ERS 08:28
DX: I11.0 Hypertensive heart disease with heart failure (principal); I50.9 Heart failure, unspecified; N39.0 Urinary tract infection, site not specified; E03.9 Hypothyroidism, unspecified; E78.5 Hyperlipidemia, unspecified; E78.00 Pure hypercholesterolemia, unspecified; I25.2 Old myocardial infarction; I25.10 Atherosclerotic heart disease of native coronary artery without angina pectoris; Z79.899 Other long term (current) drug therapy
CPT/HCPCS: 36415; 36416; 71045; 80053; 81003; 81015; 82553; 83880; 84484; 85025; 87086; 93005; 96372; J0696; J1940

== ENCOUNTER 2020-06-29 07:42 | Inpatient (IN) | payer MEDICARE, MEDICAID ==
[2020-06-29 08:33] LABS: #Basophils 0.1 thou/uL (0.0-0.2); #Lymphocytes 2.2 thou/uL (1.20-3.40); #Monocytes 0.6 thou/uL (0.11-0.59); #Neutrophils 5.2 thou/uL (1.40-6.50); %Basophils 0.6 % (0.0-1.0); %Eosinophils 0.3 % (0.0-10.0); %Lymphocytes 27.2 % (21.0-51.0); %Monocytes 7.8 % (0.0-10.0); %Neutrophils 64.1 % (42.0-75.0); Hemoglobin 11.2 g/dL (12.0-16.0); Mean Corpuscular Hemoglobin 29.5 pg (27.0-31.0); Mean Corpuscular Volume 89.3 fL (78.0-98.0); Mean Platelet Volume 8.6 fL (7.4-10.4); Platelet Count 264 thou/uL (130-400); RBC Distribution Width 14.5 % (11.5-14.5); White Blood Cell (WBC) Count 8.1 thou/uL (4.8-10.8)
[2020-06-29 08:47] LABS: ALT (SGPT) 20 U/L (8-55); AST (SGOT) 25 U/L (5-34); Albumin 2.4 g/dL (3.4-4.8); Alkaline Phosphatase 93 U/L (40-110); Anion Gap 14 mmol/L (10-20); BUN (Urea Nitrogen) 22 mg/dL (9.8-20.1); Bilirubin, Total 1.1 mg/dL (0.2-1.2); CK (CPK) 36 U/L (29-168); Calc. Creatinine Clearance 0 mL/min (70-130); Calcium 7.7 mg/dL (7.8-10.44); Carbon Dioxide 20 mmol/L (23-31); Chloride 106 mmol/L (98-107); Globulin 2.4 g/dL (2.4-3.5); Glucose 70 mg/dL (83-110); Potassium 4.3 mmol/L (3.5-5.1); Protein, Total 4.8 g/dL (5.8-8.1); Sodium 136 mmol/L (136-145)
[2020-06-29 09:00] LABS: Bacteria/HPF None Seen HPF (None Seen); Bilirubin Negative (Negative); Blood, Urine Negative (Negative); Clarity Turbid (Clear); Glucose, Urine (Dipstick) Normal (Negative); Ketone, Urine Trace mg/dL (Negative); Leukocyte 500 Leu/uL (Negative); Nitrite Negative (Negative); Protein, Urine (Dipstick) 10 mg/dL (Neg-Trace); Specific Gravity, Urine 1.023 (1.002-1.036); Urobilinogen Normal mg/dL (Less than 2); pH, Urine 5.5 (5.0-9.0)
[2020-06-29 09:02] LABS: PTT 25.1 sec (22.9-36.1); Prothrombin Time 13.2 sec (12.0-14.7)
[2020-06-29 09:12] LABS: CKMB 0.9 ng/mL (0-6.6)
[2020-06-29 09:58] LABS: RBC/HPF 0-3 HPF (0-3)
[2020-06-29] MEDS ORDERED: hydrALAZINE 20 MG/ML VIAL SLOW IVP PRN (12:14)
[2020-06-29] MEDS ORDERED: Dextrose 5% in Water 1,000 ML IV PRN (12:14)
[2020-06-29] MEDS ORDERED: Dextrose 50% Abboject 50 ML SYRINGE SLOW IVP PRN (12:14)
[2020-06-29] MEDS ORDERED: Ondansetron ODT 4 MG TAB PO PRN (12:14)
[2020-06-29] MEDS ORDERED: Sodium Chloride 0.9% 1,000 ML IV SCH (12:15)
[2020-06-29] MEDS ORDERED: Acetaminophen 500 MG TAB PO PRN (12:19)
[2020-06-29 12:30] LABS: Phosphorus 2.9 mg/dL (2.3-4.7)
[2020-06-29 12:35] LABS: Troponin I 0.056 ng/mL (< 0.028)
[2020-06-29 14:39] LABS: Troponin I 0.066 ng/mL (< 0.028)
[2020-06-29] MEDS: Senokot S 8.6-50 MG TAB PO SCH (21:16)
[2020-06-29] MEDS: Famotidine 20 MG TAB PO SCH (21:16)
[2020-06-29 22:57] VITALS: BMI 15.6
[2020-06-30 05:00] LABS: SARS-CoV-2 PCR by NAA Not Detected (NotDetected)
[2020-06-30] MEDS ORDERED: Levothyroxine Sodium 25 MCG TAB PO SCH (09:00)
[2020-06-30] MEDS: Famotidine 20 MG TAB PO SCH ×2 (09:54→22:42)
[2020-06-30] MEDS: Senokot S 8.6-50 MG TAB PO SCH ×2 (09:55→22:41)
[2020-06-30] MEDS: Polyethylene Glycol 3350 17 GM Packet PO SCH (09:55)
[2020-07-01] MEDS: Polyethylene Glycol 3350 17 GM Packet PO SCH (09:11)
[2020-07-01] MEDS: Senokot S 8.6-50 MG TAB PO SCH ×2 (09:11→20:22)
[2020-07-01] MEDS: Famotidine 20 MG TAB PO SCH ×2 (09:11→20:23)
[2020-07-02] MEDS: Levothyroxine Sodium 25 MCG TAB PO SCH (05:30)
[2020-07-02] MEDS: Senokot S 8.6-50 MG TAB PO SCH ×2 (08:52→20:17)
[2020-07-02] MEDS: Polyethylene Glycol 3350 17 GM Packet PO SCH (08:53)
[2020-07-02] MEDS: Famotidine 20 MG TAB PO SCH ×2 (08:53→20:17)
[2020-07-03] MEDS: Levothyroxine Sodium 25 MCG TAB PO SCH (05:34)
[2020-07-03] MEDS: Polyethylene Glycol 3350 17 GM Packet PO SCH (09:38)
[2020-07-03] MEDS: Famotidine 20 MG TAB PO SCH ×2 (09:38→20:19)
[2020-07-03] MEDS: Senokot S 8.6-50 MG TAB PO SCH ×2 (09:38→20:19)
[2020-07-04] MEDS: Levothyroxine Sodium 25 MCG TAB PO SCH (05:45)
[2020-07-04] MEDS: Polyethylene Glycol 3350 17 GM Packet PO SCH (09:59)
[2020-07-04] MEDS: Famotidine 20 MG TAB PO SCH (09:59)
[2020-07-04] MEDS: Senokot S 8.6-50 MG TAB PO SCH (09:59)
[2020-07-04] MEDS ORDERED: Fentanyl 100 MCG/2 ML VIAL ONE (10:50)
[2020-07-04] MEDS ORDERED: Lactated Ringer's 500 ML IV SCH (11:00)
[2020-07-04 11:35] LABS: #Basophils 0.1 thou/uL (0.0-0.2); #Lymphocytes 1.4 thou/uL (1.20-3.40); #Monocytes 0.6 thou/uL (0.11-0.59); #Neutrophils 4.2 thou/uL (1.40-6.50); %Basophils 0.9 % (0.0-1.0); %Eosinophils 0.4 % (0.0-10.0); %Lymphocytes 21.7 % (21.0-51.0); %Monocytes 10.2 % (0.0-10.0); %Neutrophils 66.8 % (42.0-75.0); Mean Corpuscular HGB CONC 31.9 g/dL (32.0-36.0); Mean Corpuscular Hemoglobin 28.6 pg (27.0-31.0); Mean Corpuscular Volume 89.6 fL (78.0-98.0); Mean Platelet Volume 8.9 fL (7.4-10.4); Platelet Count 228 thou/uL (130-400); RBC Distribution Width 14.5 % (11.5-14.5); Red Blood Cell (RBC) Count 3.51 mill/uL (4.20-5.40); White Blood Cell (WBC) Count 6.3 thou/uL (4.8-10.8)
[2020-07-04 11:58] LABS: Anion Gap 10 mmol/L (10-20); BUN (Urea Nitrogen) 17 mg/dL (9.8-20.1); Calc. Creatinine Clearance 37 mL/min (70-130); Calcium 7.5 mg/dL (7.8-10.44); Carbon Dioxide 23 mmol/L (23-31); Chloride 106 mmol/L (98-107); Glucose 94 mg/dL (83-110); Potassium 3.8 mmol/L (3.5-5.1); Sodium 135 mmol/L (136-145)
[2020-07-04 16:21] VITALS: BP 94/58; TEMP 98.4
== END 2020-07-04 18:45 | DRG 85 ==
LOC: ERS 07:42 → ERHOLD 11:13 → 2SE 20:28 → SURG A 07-01 15:58
PROVIDERS: ADMIT Surgery; ATTEND Surgery
DX: S06.5X0A Traumatic subdural hemorrhage without loss of consciousness, initial encounter (principal); E43 Unspecified severe protein-calorie malnutrition; S06.1X0A Traumatic cerebral edema without loss of consciousness, initial encounter; Z68.1 Body mass index [BMI] 19.9 or less, adult; I24.8 Other forms of acute ischemic heart disease; I48.92 Unspecified atrial flutter; Z66 Do not resuscitate; Z20.822 Contact with and (suspected) exposure to COVID-19; R62.7 Adult failure to thrive; R40.4 Transient alteration of awareness; E03.9 Hypothyroidism, unspecified; E78.5 Hyperlipidemia, unspecified; E78.00 Pure hypercholesterolemia, unspecified; I10 Essential (primary) hypertension; I25.10 Atherosclerotic heart disease of native coronary artery without angina pectoris; F41.9 Anxiety disorder, unspecified; F32.9 Major depressive disorder, single episode, unspecified; M19.90 Unspecified osteoarthritis, unspecified site; W01.10XA Fall on same level from slipping, tripping and stumbling with subsequent striking against unspecified object, initial encounter; I25.2 Old myocardial infarction; Z90.710 Acquired absence of both cervix and uterus; Z79.899 Other long term (current) drug therapy; Z79.890 Hormone replacement therapy; R40.2362 Coma scale, best motor response, obeys commands, at arrival to emergency department; R40.2142 Coma scale, eyes open, spontaneous, at arrival to emergency department; R40.2252 Coma scale, best verbal response, oriented, at arrival to emergency department
CPT/HCPCS: 36415; 36416; 70450; 71045; 80048; 80053; 81003; 81015; 82550; 82553; 83735; 84100; 84439; 84443; 84484; 85025; 85610; 85730; 87086; 87635; 93005; J3010; U0003; U0005